=== PATIENT | female | born 1975 | race Two or more races ===

== ENCOUNTER 2024-07-23 14:17 | Inpatient (IN) | payer BC, SELFPAY ==
[2024-07-23 14:24] VITALS: BP 151/102; BP 160/100; PULSE 95; RESP 20; TEMP 36.8; O2SAT 98; BMI 39.9
--- NOTE | 2024-07-23 14:30 | XR_ITS ---
Examination: CT abdomen with intravenous contrast CT pelvis with intravenous contrast 2-D coronal reconstructions 2-D sagittal reconstructions Date and time of exam:July 23, 2024 at 1617 hrs. Indications: Right lower abdominal pain beginning 3 days ago. CTDI: vol (mGy) 18.4 DLP: (mGycm) 1112 Technique: Multiple axial sections of the abdomen and pelvis have been obtained. 64 slice high-resolution scanner used. 3 mm axial sections have been obtained, post intravenous injection 60 cc Isovue-370 2-D sagittal, coronal reconstructions obtained. Low dose protocols were performed. One or more of the following dose reduction techniques were used; automated exposure control, adjustment of the mA and/or KV according to patient size, use of iterative reconstruction technique. Findings: Fatty infiltration throughout the liver No gallstones No renal or ureteral calculi, no hydronephrosis Aorta normal size Mass within formation pericecal without a well-defined appendix Anteverted uterus Contracted urinary bladder with wall thickening Impression: 3 cm mass with inflammation which is pericecal and adjacent to the uterus differential would include ruptured appendicitis as well as right tubo-ovarian abscess, the appearance should be clinically correlated, recommend pelvic sonography follow-up
--- NOTE | 2024-07-23 14:33 | PD.EDRME ---
Rapid Medical Screening Exam RME Arrival date/time: 07/23/24 14:17 48-year-old female with no known medical history presents to the emergency room with a chief complaint of 10 out of 10 right lower quadrant abdominal pain and tenderness x 2 days I have greeted and performed a focused initial assessment of this patient. A comprehensive ED assessment and evaluation of the patient, analysis of all test results, and completion of the medical decision making process will be conducted by additional ED providers. Chief Complaint: Abdominal Pain Time Seen by Provider: 07/23/24 14:21 Vital signs: Vital Signs Temperature 98.2 F 07/23/24 14:24 Pulse Rate 95 07/23/24 14:24 Respiratory Rate 20 07/23/24 14:24 Blood Pressure 151/102 H 07/23/24 14:24 Pulse Oximetry (%) 98 07/23/24 14:24 Oxygen Delivery Method Room Air 07/23/24 14:24 Vital signs reviewed by provider: Yes
[2024-07-23] MEDS: ONDANSETRON ODT 4 MG TABRAP PO (14:48)
[2024-07-23 15:04] LABS: Basophils % (Auto) 0 % (0-2.5); Eosinophils # (Auto) 0.1 Thou/mm3 (0.0-0.5); Eosinophils % (Auto) 1 % (0-10); Hematocrit 39.6 % (36.0-46.0); Hemoglobin 13.1 g/dL (12.0-16.0); Immature Granulocytes % (Auto) 0 % (0-0); Immature Granulocytes Auto 0.02 Thou/mm3 (0.00-0.00); Lymphocytes # (Auto) 2.5 Thou/mm3 (1.0-4.8); Lymphocytes % (Auto) 28 % (10-50); Mean Corpuscular HGB Conc 33.1 g/dl (31.0-37.0); Mean Corpuscular Hemoglobin 29.8 pg (25.0-35.0); Mean Corpuscular Volume 90 fL (80-100); Monocytes # (Auto) 0.7 Thou/mm3 (0.0-0.8); Monocytes % (Auto) 8 % (0-12); Neutrophils # (Auto) 5.7 Thou/mm3 (1.8-7.7); Neutrophils % (Auto) 63 % (37-80); Nucleated Red Blood Cell % 0 /100 WBC (0); Platelet Count 262 Thou/mm3 (140-440); RDW Standard Deviation 43.9 fL (36.4-46.3); Red Blood Count 4.39 Miln/mm3 (4.00-5.20); White Blood Count 9.1 Thou/mm3 (3.6-11.0)
[2024-07-23 15:25] LABS: Collection Type, Urine Clean Catch
[2024-07-23] MEDS: HYDROcodone/APAP 5/325 TABLET 1 TAB PO (15:26)
[2024-07-23 15:33] LABS: Alanine Aminotransferase 18 U/L (10-49); Albumin/Globulin Ratio 1.4 (1.2-2.2); Alkaline Phosphatase 81 U/L (46-116); Anion Gap 9 (7-16); Aspartate Amino Transferase 15 U/L (0-34); BUN/Creatinine Ratio 16 Ratio (12-20); Bilirubin,Total 0.4 mg/dL (0.3-1.2); Blood Urea Nitrogen 11 mg/dL (9-23); Calcium 8.7 mg/dL (8.3-10.6); Calcium (Corrected) 8.7 mg/dL (8.5-10.1); Carbon Dioxide 22.5 mMol/L (20.0-31.0); Chloride 107 mMol/L (98-107); Creatinine (Component) 0.7 mg/dL (0.6-1.3); Estimated Creatinine Clearance 119.3 mL/min (>60); Globulin 2.8 gm/dL (2.3-3.5); Glucose 88 mg/dL (74-106); Lipase 34 U/L (12-53); Osmolality,Calculated 274 (275-295); Potassium 3.8 mMol/L (3.4-5.1); Sodium 138 mMol/L (136-145); Total Protein 6.8 gm/dL (5.7-8.2); eGFR > 60 See Note
[2024-07-23 15:36] LABS: HCG Qualitative,Urine Negative
[2024-07-23 15:45] LABS: Bacteria,Urine Rare; Bilirubin,Urine Negative (Negative); Blood,Urine 2+ (Negative); Clarity,Urine Clear (Clear/Hazy); Color,Urine Lt-Yellow (Lt Yel-Yel); Glucose, Urine Negative (Negative); Ketones,Urine Negative (Negative); Leukocyte Esterase,Urine Negative (Negative); Nitrite,Urine Negative (Negative); Protein,Urine Negative (Neg - Trace); RBC,Urine 3 /hpf (0-3); Specific Gravity,Urine 1.019 (1.001-1.035); Squamous Epithelial Cell,Urine 10 /hpf (0-5); Urobilinogen,Urine Negative mg/dL (0.0-1.0); WBC,Urine 3 /hpf (0-5)
[2024-07-23 15:47] LABS: Sperm,Urine Present
--- NOTE | 2024-07-23 17:33 | XR_ITS ---
Examination: Pelvic ultrasound, transabdominal, complete Technique: Transabdominal ultrasound of the pelvis performed using grayscale imaging Date and time of exam: July 23, 2024 at 1741 hrs. Indications: Pelvic pain and tenderness beginning 3 days ago, CT abdomen pelvis today 3 7 mm mass with inflammation which is pericecal and adjacent to the uterus, differential including appendicitis, right tubo-ovarian abscess Findings: Uterus 13.9 cm endometrial stripe 1.6 cm No uterine mass Right ovary 5.5 cm arterial flow Left ovary 4.2 cm arterial flow Impression: Enlarged right ovary 5.5 x 3.1 x 3.8 cm with arterial flow, differential would include early right ovarian tumor, recommend elective MRI pelvis follow-up pre and postcontrast
--- NOTE | 2024-07-23 22:16 | PD.EDABDPN ---
ED Abdominal Pain RME/HPI General Chief Complaint: Abdominal Pain Stated complaint: SENT BY DR. SINGER FOR ACUTE ABD Time seen by provider: 07/23/24 14:21 Arrival date/time: 07/23/24 14:17 Limitations: no limitations RME / HPI RME / HPI narrative: 07/23/24 14:17 48-year-old female with no known medical history presents to the emergency room with a chief complaint of 10 out of 10 right lower quadrant abdominal pain and tenderness x 2 days I have greeted and performed a focused initial assessment of this patient. A comprehensive ED assessment and evaluation of the patient, analysis of all test results, and completion of the medical decision making process will be conducted by additional ED providers. Dr. Gallagher's Main ED Evaluation: 48yo female with no significant past medical history presents to the ED for a chief complaint of RLQ pain since yesterday. Patient states her RLQ pain got significantly worse today. She reports associated chills and nausea. She denies any fever, vomiting, diarrhea, UTI symptoms or any other associated symptoms. No known allergies. Related Data Allergies Allergy/AdvReac Type Severity Reaction Status Date / Time No Known Allergies Allergy Verified 07/23/24 14:19 Review of Systems Review of Systems Systems Reviewed: All systems reviewed, normal except as documented Past Medical History Past Medical History CARDIAC: Negative Cardiac Disorders RESPIRATORY: Negative Asthma GENITOURINARY: Negative Renal Disease ENDOCRINE: Negative Diabetes Mellitus Type 2 HEMATOLOGIC: Negative Sickle Cell Disease Social History SMOKING STATUS: Never smoker ED Exam Narrative Physical exam: PELVIC: Welding Machine Operator Resistance present. Dark yellow discharge seen in the vaginal vault. There is right-sided pelvic fullness with tenderness. General Limitations: Present no limitations General appearance: Present alert and other (appears uncomfortable) Head Head exam: Present atraumatic Eye Eye exam: Present normal appearance, PERRL and EOMI ENT ENT exam: Present normal exam, normal oropharynx and mucous membranes moist Neck Neck exam: Present normal inspection, full ROM and trachea midline Chest Chest inspection: Present normal inspection and symmetric chest wall rise Respiratory Respiratory exam: Present normal lung sounds bilaterally Cardiovascular Cardiovascular exam: Present regular rate, normal rhythm and normal heart sounds Abdominal Exam Abdominal exam: Present soft, rebound (mild, diffuse) and other (RLQ>LLQ abdominal tenderness) Extremities Exam Extremities exam: Present normal inspection and full ROM Back Exam Back exam: Present normal inspection and full ROM Neurological Exam Neurological exam: Present alert, oriented X3 and CN II-XII intact Psychiatric Psychiatric exam: Present normal affect and normal mood Skin Skin exam: Present warm, dry, intact and normal color Course Quality Measures none Orders Category Date Time Status COVID-19 Screening Questionnaire NOW Care 07/24/24 02:[address] Screening NOW Care 07/23/24 14:31 Active Decision to Admit X1 Care 07/24/24 02:04 Completed Consult to General Surgery Routine Cons 07/24/24 04:23 Ordered Consult to Obstetrics Routine Cons 07/24/24 04:[address] abdomen pelvis w con Stat Exams 07/23/24 14:30 Completed US pelvic complete Stat Exams 07/23/24 17:33 Completed CBC Stat Lab 07/23/24 14:43 Completed CMP [Comprehensive Metabolic Panel] Stat Lab 07/23/24 14:43 Completed HCG Qualitative,Urine Stat Lab 07/23/24 15:00 Completed Lipase Stat Lab 07/23/24 14:43 Completed UA [Urinalysis] Stat Lab 07/23/24 15:00 Completed Urine Culture Stat Lab 07/23/24 15:00 Received Wet Prep Stat Lab 07/24/24 01:15 Received HYDROcodone*/APAP 5/325 [[place] 5/325] Med 07/23/24 14:30 Discontinued 1 tab PO X1 ONE Ketorolac Inj [Toradol Inj] Med 07/23/24 22:20 Discontinued 30 mg IVP X1 ONE Morphine Inj Med 07/23/24 23:57 Discontinued 4 mg IVP X1 ONE Morphine Inj Med 07/24/24 00:30 Discontinued 4 mg IVP X1 ONE Morphine Inj Med 07/24/24 01:04 Discontinued 4 mg IVP X1 ONE Ondansetron Inj [Zofran Inj] Med 07/23/24 23:57 Discontinued 4 mg IV X1 ONE Ondansetron Inj [Zofran Inj] Med 07/23/24 23:59 Active 4 mg IV X1 PRN Ondansetron Odt [Zofran Odt] Med 07/23/24 14:30 Discontinued 4 mg PO X1 ONE Piper/Tazo 3.375 gm Premix [Zosyn] Med 07/24/24 04:15 Discontinued 3.375 gm in 50 ml IV X1 Piper/Tazo 3.375 gm Premix [Zosyn] 50 ml Med 07/24/24 02:36 Pending IV Q6HR Sodium Chloride 0.9% 1000 ml [Ns] 1,000 ml Med 07/24/24 02:37 Active IV 75 mls/hr Sodium Chloride 0.9% 1000 ml [Ns] 1,000 ml Med 07/23/24 22:21 Discontinued IV 999 mls/hr Vital Signs Vital signs: Vital Signs Temperature 98.2 F 07/23/24 14:24 Pulse Rate 95 07/23/24 14:24 Respiratory Rate 20 07/23/24 14:24 Blood Pressure 151/102 H 07/23/24 14:24 Pulse Oximetry (%) 98 07/23/24 14:24 Oxygen Delivery Method Room Air 07/23/24 14:24 Abdominal Pain MDM MDM Narrative MDM Narrative:: 0030: Discussed case with [Dr. Milian] from [general surgery] regarding [consultation]. Discussed patients ED course, exam findings, labs, and radiology results. Does not feel the patient hs appendicitis at this time and thinks the patient may have a tubo ovarian abscess. States getting a MRI will be usefule, but to admit the patient for pain control and IV abx. 0123: Discussed case with [Dr. Reed, attending Dr. Lott] from Hospitalist service regarding admission. Discussed patients ED course, exam findings, labs, and radiology results. The Hospitalist will evaluate the patient for admission. 0207: The Hospitalist requests [employer] consultation, but will admit the patient. 0457: Discussed case with [Dr. Elder] from [[employer]] regarding [consultation]. Discussed patients ED course, exam findings, labs, and radiology results. States she will come evaluate the patient. Patient data External records reviewed:: [facility] previous records (Per chart review, patient has no previous ED visits or admissions to this facility.) Clinical information provided by:: patient Social determinants that could affect healthcare access:: none Patient has the following chronic illnesses:: none How is presenting disease/condition affected by chronic disease/condition?: no chronic disease Evaluation data The following diagnostics were reviewed and interpreted by me:: lab results and radiology exam(s) Lab and/or radiology exams considered but not ordered:: none Interpretation Summary: CBC is normal, CMP is normal, Lipase is normal, UA is contaminated, HCG is negative, according to my interpretation. --------- [facility] Report Signed Patient: АНДРЕЙ NGUYEN [facility]. Record#: [id number] Birthdate: 1975 Age/Sex: 48 / F Location: [facility] Attending Dr: Ordering Physician: Osvaldo Worthington Date of Service: 07/23/24 Procedure(s): US pelvic complete Accession Number(s): [id number] cc: Theron Singer MD; Osvalod Worthington; Riley Mansfield MD~ Examination: Pelvic ultrasound, transabdominal, complete Technique: Transabdominal ultrasound of the pelvis performed using grayscale imaging Date and time of exam: July 23, 2024 at 1741 hrs. Indications: Pelvic pain and tenderness beginning 3 days ago, CT abdomen pelvis today 3 7 mm mass with inflammation which is pericecal and adjacent to the uterus, differential including appendicitis, right tubo-ovarian abscess Findings: Uterus 13.9 cm endometrial stripe 1.6 cm No uterine mass Right ovary 5.5 cm arterial flow Left ovary 4.2 cm arterial flow Impression: Enlarged right ovary 5.5 x 3.1 x 3.8 cm with arterial flow, differential would include early right ovarian tumor, recommend elective MRI pelvis follow-up pre and postcontrast Dictated By: Riley Mansfield MD Signed By: <Electronically signed by Riley Mansfield MD in OV> 07/23/24 1823 [facility] Signed Patient: АНДРЕЙ NGUYEN [facility]. Record#: [id number] Birthdate: 1975 Age/Sex: 48 / F Location: [facility] Attending Dr: Ordering Physician: Osvaldo Worthington Date of Service: 07/23/24 Procedure(s): CT abdomen pelvis w con Accession Number(s): [id number] cc: Theron Singer MD; Osvaldo Worthington; Riley Mansfield MD~ Examination: CT abdomen with intravenous contrast CT pelvis with intravenous contrast 2-D coronal reconstructions 2-D sagittal reconstructions Date and time of exam:July 23, 2024 at 1617 hrs. Indications: Right lower abdominal pain beginning 3 days ago. CTDI: vol (mGy) 18.4 DLP: (mGycm) 1112 Technique: Multiple axial sections of the abdomen and pelvis have been obtained. 64 slice high-resolution scanner used. 3 mm axial sections have been obtained, post intravenous injection 60 cc Isovue-370 2-D sagittal, coronal reconstructions obtained. Low dose protocols were performed. One or more of the following dose reduction techniques were used; automated exposure control, adjustment of the mA and/or KV according to patient size, use of iterative reconstruction technique. Findings: Fatty infiltration throughout the liver No gallstones No renal or ureteral calculi, no hydronephrosis Aorta normal size Mass within formation pericecal without a well-defined appendix Anteverted uterus Contracted urinary bladder with wall thickening Impression: 3 cm mass with inflammation which is pericecal and adjacent to the uterus differential would include ruptured appendicitis as well as right tubo-ovarian abscess, the appearance should be clinically correlated, recommend pelvic sonography follow-up Dictated By: Riley Mansfield MD Signed By: <Electronically signed by Riley Mansfiled MD in OV> 07/23/24 1708 Medications / Prescriptions Medications or Prescriptions considered but not ordered:: none Medication administrations:: Medication Administration History Acetaminophen (Acetaminophen 325 Mg Tablet) 650 mg PO Q6H PRN PRN Reason: Fever >100 or pain 1-3 Stop: 08/23/24 04:24 Hydrocodone Bitart/Acetaminophen (Hydrocodone/Apap 5/325 Tablet) 1 tab PO Q4HR PRN PRN Reason: PAIN SCALE 4-6 (Moderate Stop: 07/29/24 04:24 Enoxaparin Sodium (Enoxaparin Sod Inj 40 Mg/0.4 Ml Syringe) 40 mg SC QDAY [facility] Stop: 08/07/24 08:59 Piperacillin/Tazobactam/Dextrose (Zosyn) 50 mls @ 100 mls/hr IV Q6HR ALDA Stop: 07/31/24 02:35 Sodium Chloride (Ns) 1,000 mls @ 75 mls/hr IV .[id number] [facility] Stop: 08/23/24 02:36 Last Admin: 07/24/24 03:33 Dose: 75 mls/hr Documented By: CVL Morphine Sulfate (Morphine Sulf Inj 10 Mg/Ml Vial) 1 mg IVP Q6H PRN PRN Reason: PAIN SCALE 7-10 (Severe Stop: 07/29/24 04:24 Ondansetron HCl (Ondansetron Inj 2 Mg/Ml Inj 2 Ml) 4 mg IV X1 PRN; Protocol PRN Reason: NAUSEA Stop: 08/22/24 23:58 Ondansetron HCl (Ondansetron Inj 2 Mg/Ml Inj 2 Ml) 4 mg IV Q6H PRN; Protocol PRN Reason: NAUSEA OR VOMITING Stop: 08/23/24 04:24 Pantoprazole Sodium (Pantoprazole Inj 40 Mg Vial) 40 mg IVP QDAY ALDA Stop: 08/23/24 08:59 Trazodone HCl (Trazodone Hcl 50 Mg Tablet) 150 mg PO HS ALDA Stop: 08/23/24 20:59 Discontinued Medications Hydrocodone Bitart/Acetaminophen (Hydrocodone/Apap 5/325 Tablet) 1 tab PO X1 ONE Stop: 07/23/24 14:31 Last Admin: 07/23/24 15:26 Dose: 1 tab Documented By: Sodium Chloride (Ns) 1,000 mls @ 999 mls/hr IV .Q1H1M ONE Stop: 07/23/24 23:21 Last Infusion: 07/24/24 00:26 Dose: Infused Documented By: Admin: 07/23/24 22:50 Dose: 999 mls/hr Documented By: CVL Piperacillin/Tazobactam/Dextrose (Zosyn) 3.375 gm in 50 mls @ 100 mls/hr IV X1 ONE Stop: 07/24/24 04:44 Last Admin: 07/24/24 04:50 Dose: 100 mls/hr Documented By: CVL Ketorolac Tromethamine (Ketorolac Inj 30 Mg/Ml Vial) 30 mg IVP X1 ONE Stop: 07/23/24 22:21 Last Admin: 07/23/24 23:32 Dose: 30 mg Documented By: CVL Morphine Sulfate (Morphine Sulf Inj 10 Mg/Ml Vial) 4 mg IVP X1 ONE Stop: 07/23/24 23:58 Last Admin: 07/24/24 00:20 Dose: 4 mg Documented By: PILI Morphine Sulfate (Morphine Sulf Inj 10 Mg/Ml Vial) 4 mg IVP X1 ONE Stop: 07/24/24 00:31 Last Admin: 07/24/24 00:48 Dose: Not Given Documented By: PILI Non-Admin Reason: Discontinued Morphine Sulfate (Morphine Sulf Inj 10 Mg/Ml Vial) 4 mg IVP X1 ONE Stop: 07/24/24 01:05 Last Admin: 07/24/24 01:18 Dose: 4 mg Documented By: PILI Ondansetron HCl (Ondansetron Odt 4 Mg Tabrap) 4 mg PO X1 ONE; Protocol Stop: 07/23/24 14:31 Last Admin: 07/23/24 14:48 Dose: 4 mg Documented By: Ondansetron HCl (Ondansetron Inj 2 Mg/Ml Inj 2 Ml) 4 mg IV X1 ONE; Protocol Stop: 07/23/24 23:58 Last Admin: 07/24/24 00:19 Dose: 4 mg Documented By: PILI see above Consultations Consultation(s) initiated? (list below): Yes Consultation #1 (Physician, Specialty, Details): See MDM narrative. Diagnosis Differential diagnosis abdominal pain: acute appendicitis, diverticulitis and other (abdominal abscess, ovarian mass, UTI, pyelonephritis, sepsis) Most likely diagnosis given after review of the tests above:: see clinical impression below Admission Indicated Admission indicated?: indicated Admission Request Was there a request for admission?: Yes Admission Attestation Admission request attestation: Discussed case with [] from Hospitalist service regarding admission. Discussed patients ED course, exam findings, labs, and radiology results. The Hospitalist [agrees,declines] to accept the patient for admission. Disposition Plan Disposition Plan: Admit Discharge Plan Plan Patient Disposition: Admit Acute Care w/in Hospital Problem List Clinical Impression: Abdominal pain, Vaginal discharge, Cyst of right ovary, Right lower quadrant abscess
[2024-07-23] MEDS: SODIUM CHLORIDE 0.9% 1000 ML 1,000 ML 999 ML IV (22:50)
[2024-07-23] MEDS: KETOROLAC INJ 30 MG/ML VIAL IVP (23:32)
[2024-07-24] VITALS (7 sets, daily range): BP systolic 117–152; BP diastolic 77–93; PULSE 84–92; RESP 16–19; TEMP 36.2–37; O2SAT 94–97; BMI 44.1
[2024-07-24] MEDS: ONDANSETRON INJ 2 MG/ML INJ 2 ML 4 MG IV ×2 (00:19→19:10)
[2024-07-24] MEDS: MORPHINE SULF INJ 10 MG/ML VIAL 4 MG IVP ×3 (00:20→14:00)
[2024-07-24] MEDS: SODIUM CHLORIDE 0.9% 1000 ML 1,000 ML 75 ML IV (03:33)
--- NOTE | 2024-07-24 04:03 | ESHP_ITS ---
<Statement entered by Kia Lott MD - 07/25/24 04:35> I reviewed above note and agree with findings and plans. I have also personally examined the patient with medicine team and went over assessment and plan with medical team including administration intern and resident physician. Documentation for date of: 07/24/24 HPI History of Present Illness History of present illness: Esperanza is a 48 y/o female w/PMHx of depression who comes in for an evaluation of periumbilical pain radiating to right lower quadrant, onset 2 days ago, with associated vomiting. Patient reports the symptoms have never happened before. She reports that her pain started in her periumbilical area and had radiated to her right lower side and has gotten worsening in pain, rated 10 out of 10 currently. She denies any recent travel or changes to diet. She says that she is currently not on her period and when she is she has them for about 4 to 5 days, and they are not heavy nor painful. She denies a history of irritable bowel disease, UTIs or STIs. She denies any recent trauma to the area. She has a history of gallstones. She is unsure why she is having this pain. She does endorse a history of having 3 C-sections and the first 1 was because there was an issue with the umbilical cord. No other complaints at this time. Does not see a manager patient. ED course: Patient arrived with a heart rate 95, respiratory of 20, blood pressure 151/102, temperature of 98.2, saturating 98% on room air. She was worked up and was found to have sodium 138, potassium 3.8, BUN/creatinine 11 and 0.7 respectively, glucose 88, white count 9.1, hemoglobin 13.1, lipase 34. Urinalysis showed +2 blood. Imaging was done and CT abdomen pelvis showed 3 cm mass pericecal and adjacent to the uterus. Pelvis ultrasound was ordered and showed enlarged right ovary 5. 5 x 3.1 x 3.8 cm with arterial flow. Patient was given [place] 5, Toradol 30, morphine 12 mg by 3 doses. General surgery was curb sided and recommended IV antibiotics and no surgical intervention at this time. Medicine was consulted and patient was made to floors. Past medical history: As above Surgical history: 3 C-sections Allergies: No known allergies Meds: Trazodone Family history: Her dad had about 38 siblings, numerous of them of cancer. Her grandmother of ovarian cancer. Her aunt she has had breast cancer. Social history: Born and raised in [place]. Has multiple kids. with her who lives with her . Is never been a heavy drinker, no smoking or oral or IV drug use history. Review of Systems Review of Systems Narrative Review of Systems: Constitutional: No fever, chills, fatigue, weakness, weight loss HEENT: No eye pain, vision loss, ear pain, hearing loss, dysphagia, Cardiovascular: No chest pain, palpitations, edema, pain with walking Respiratory: No cough, shortness of breath, wheezing GI: No NVD, abdominal pain, constipation, blood in stool, loss of appetite, heartburn Extremities: No presence of pitting edema MSK: No back pain, joint pain, joint swelling Neuro: No dizziness, numbness, weakness, headaches, seizures, tremors Psych: No anxiety, depression Exam Vital Signs Temp Pulse Resp BP Pulse Ox O2 Del Method 98.6 F 91 17 137/90 H 97 Room Air 07/24/24 02:25 07/24/24 02:25 07/24/24 02:25 07/24/24 02:25 07/24/24 02:25 07/24/24 02:25 Narrative Exam General: AAOx3, obese female, in some distress, wears glasses HEENT: Moist mucous membranes, conjunctiva clear, EOMI, PERRLA, Cardiovascular: S1, S2, radial pulses +2 bilat, RRR Pulmonary: CTAB bilat no cough, no wheezing GI: Significant rebound tenderness along right lower quadrant, pain to light and deep palpation in periumbilical area in addition to right lower quadrant, difficulty hearing bowel sounds : Pelvic exam done by emergency medicine doctor who reported odorous smell and dark yellow discharge Extremities: No presence of trace or pitting edema in lower extremities bilaterally, dorsalis pedis pulses +2 bilaterally Neuro: AAOx3, no focal motor or sensory deficits in the UE or LE bilat Psych: Cooperative Results: Labs 07/24/24 05:00 07/23/24 14:43 Labs: Short CBC 07/23/24 Range/Units 14:43 WBC 9.1 (3.6-11.0) Thou/mm3 Hgb 13.1 (12.0-16.0) g/dL Hct 39.6 (36.0-46.0) % Plt Count 262 (140-440) Thou/mm3 BMP 07/23/24 14:43 Sodium 138 Potassium 3.8 Chloride 107 Carbon Dioxide 22.5 BUN 11 Creatinine 0.7 Glucose 88 Calcium 8.7 Liver Function 07/23/24 Range/Units 14:43 Total Bilirubin 0.4 (0.3-1.2) mg/dL AST 15 (0-34) U/L ALT 18 (10-49) U/L Alkaline Phosphatase 81 (46-116) U/L Albumin 4.0 (3.5-5.0) gm/dL Urine 07/23/24 Range/Units 15:00 Urine Color Lt-Yellow (Lt Yel-Yel) Urine Clarity Clear (Clear/Hazy) Urine pH 6.0 (5.0-7.0) Ur Specific [place] 1.019 (1.001-1.035) Urine Protein Negative (Neg - Trace) Urine Glucose (UA) Negative (Negative) Quality Measures Quality Measures none Medications Home Medications and Allergies Home Medications ?Medication ?Instructions ?Recorded ?Confirmed ?Type No Known Home Medications 07/24/2407/12 History Allergies Allergy/AdvReac Type Severity Reaction Status Date / Time No Known Allergies Allergy Verified 07/23/24 14:19 Visit Medications Piperacillin/Tazobactam/Dextrose (Zosyn) 50 mls @ 100 mls/hr IV Q6HR ALDA Stop: 07/31/24 02:35 Sodium Chloride (Ns) 1,000 mls @ 75 mls/hr IV .[id number] ALDA Stop: 08/23/24 02:36 Last Admin: 07/24/24 03:33 Dose: 75 mls/hr Ondansetron HCl (Ondansetron Inj 2 Mg/Ml Inj 2 Ml) 4 mg IV X1 PRN; Protocol PRN Reason: NAUSEA Stop: 08/22/24 23:58 Discontinued Medications Hydrocodone Bitart/Acetaminophen (Hydrocodone/Apap 5/325 Tablet) 1 tab PO X1 ONE Stop: 07/23/24 14:31 Last Admin: 07/23/24 15:26 Dose: 1 tab Sodium Chloride (Ns) 1,000 mls @ 999 mls/hr IV .Q1H1M ONE Stop: 07/23/24 23:21 Last Infusion: 07/24/24 00:26 Dose: Infused Ketorolac Tromethamine (Ketorolac Inj 30 Mg/Ml Vial) 30 mg IVP X1 ONE Stop: 07/23/24 22:21 Last Admin: 07/23/24 23:32 Dose: 30 mg Morphine Sulfate (Morphine Sulf Inj 10 Mg/Ml Vial) 4 mg IVP X1 ONE Stop: 07/23/24 23:58 Last Admin: 07/24/24 00:20 Dose: 4 mg Morphine Sulfate (Morphine Sulf Inj 10 Mg/Ml Vial) 4 mg IVP X1 ONE Stop: 07/24/24 00:31 Last Admin: 07/24/24 00:48 Dose: Not Given Morphine Sulfate (Morphine Sulf Inj 10 Mg/Ml Vial) 4 mg IVP X1 ONE Stop: 07/24/24 01:05 Last Admin: 07/24/24 01:18 Dose: 4 mg Ondansetron HCl (Ondansetron Odt 4 Mg Tabrap) 4 mg PO X1 ONE; Protocol Stop: 07/23/24 14:31 Last Admin: 07/23/24 14:48 Dose: 4 mg Ondansetron HCl (Ondansetron Inj 2 Mg/Ml Inj 2 Ml) 4 mg IV X1 ONE; Protocol Stop: 07/23/24 23:58 Last Admin: 07/24/24 00:19 Dose: 4 mg Assessment & Plan Plan Assessment Esperanza is a 48 y/o female w/PMHx of depression who is admitted for acute abdomen. #Abdominal Mass vs #Ovarian Abscess #Abdominal pain DDx: Appendicitis, tubo-ovarian abscess, ovarian tumor, PID Ultrasound showed enlarged right ovary 5.5 x 3.1 x 3.[address] did not show appendicitis exam showed dark yellow discharge that was odorous, could be infectious related Patient experiencing extreme rebound tenderness, could be appendicitis as pain is described in periumbilical area and then radiated to the right lower quadrant, however is only been experiencing for 2 days Plan: ? Zosyn 3.375 mg Q6H IV ? General Surgery consult ? OBGYN Consult ? Pain control with Morphine and [place] ? MRI pelvis w/wout contrast ? Follow up pelvic culture ? Follow up blood cultures ? Consider STI screening #History of Depression Plan: ? Resumed home trazodone 150 mg #[facility]: [facility] GI prophylaxis: Protonix Diet: Regular CODE STATUS: Full Patient seen and care discussed with my attending physician, Dr. Kaylie Ricci, PGY-1
[2024-07-24] MEDS: PIPER/TAZO 3.375 GM PREMIX 3.375 GM/50 ML BAG IV ×3 (04:50→21:24)
[2024-07-24 05:50] LABS: Basophils % (Auto) 1 % (0-2.5); Eosinophils # (Auto) 0.1 Thou/mm3 (0.0-0.5); Eosinophils % (Auto) 1 % (0-10); Hematocrit 35.5 % (36.0-46.0); Hemoglobin 11.6 g/dL (12.0-16.0); Immature Granulocytes % (Auto) 0 % (0-0); Immature Granulocytes Auto 0.02 Thou/mm3 (0.00-0.00); Lymphocytes # (Auto) 1.6 Thou/mm3 (1.0-4.8); Lymphocytes % (Auto) 22 % (10-50); Mean Corpuscular HGB Conc 32.7 g/dl (31.0-37.0); Mean Corpuscular Hemoglobin 29.4 pg (25.0-35.0); Mean Corpuscular Volume 90 fL (80-100); Monocytes # (Auto) 0.8 Thou/mm3 (0.0-0.8); Monocytes % (Auto) 11 % (0-12); Neutrophils % (Auto) 66 % (37-80); Nucleated Red Blood Cell % 0 /100 WBC (0); Platelet Count 222 Thou/mm3 (140-440); Red Blood Count 3.94 Miln/mm3 (4.00-5.20); White Blood Count 7.5 Thou/mm3 (3.6-11.0)
--- NOTE | 2024-07-24 06:01 | PC.NURSE ---
REPORT GIVEN TO ALMA FREDERICK AT [facility].
--- NOTE | 2024-07-24 06:03 | XR_ITS ---
Examination: MRI pelvis with intravenous contrast. MRI pelvis without intravenous contrast. Date and time of exam: July 24, 2024 1753 hrs. Indications: Pelvic pain and tenderness beginning 4 days ago, pelvic sonogram July 23, 2024 prominent right ovary 5.5 cm Technique: Multiple axial, sagittal and coronal sections of the pelvis obtained. Transverse images, TR 6020, TE 107. T1 weighted transverse images, TR 582, TE 9.5. T2-weighted sagittal images, TR 4000, TE 105. T2-weighted sagittal images, TR 4000, TE 5. Coronal images, TR 4210, TE 107. Axial and coronal images are obtained post 20 cc intravenous injection, gadolinium. Findings: Anteverted uterus, 14 x 5 x 4.8 cm Endometrial stripe 15 mm Uterine body mass 26 mm Prominent right ovary 5.8 x 2.6 cm with follicular cysts, multiple, the largest 18 mm Left ovary 3.8 x 2.8 cm Impression: Uterine body mass 26 mm, likely fibroid degeneration Prominent right ovary, which appears to be secondary to multiple follicular cysts Recommend 6 month follow-up transabdominal pelvic sonography
[2024-07-24 06:09] LABS: Partial Thromboplastin Time 24.7 Seconds (22.0-36.0); Prothrombin Time 10.5 Seconds (9.0-12.2)
[2024-07-24 06:34] LABS: Alanine Aminotransferase 48 U/L (10-49); Albumin, Serum 3.6 gm/dL (3.5-5.0); Albumin/Globulin Ratio 1.4 (1.2-2.2); Alkaline Phosphatase 126 U/L (46-116); Anion Gap 9 (7-16); Aspartate Amino Transferase 98 U/L (0-34); BUN/Creatinine Ratio 17 Ratio (12-20); Blood Urea Nitrogen 10 mg/dL (9-23); Calcium 8.3 mg/dL (8.3-10.6); Calcium (Corrected) 8.6 mg/dL (8.5-10.1); Carbon Dioxide 24.1 mMol/L (20.0-31.0); Cardiac Risk Estimate 4.3 RATIO (3.7-5.6); Chloride 108 mMol/L (98-107); Cholesterol 173 mg/dL (132-200); Creatinine (Component) 0.6 mg/dL (0.6-1.3); Estimated Creatinine Clearance 147.3 mL/min (>60); Globulin 2.5 gm/dL (2.3-3.5); Glucose 90 mg/dL (74-106); HDL Cholesterol 40 mg/dL (40-60); LDL Cholesterol,Calculated 98 mg/dL (0-130); Osmolality,Calculated 280 (275-295); Phosphorous 2.3 mg/dL (2.4-5.1); Potassium 3.6 mMol/L (3.4-5.1); Sodium 141 mMol/L (136-145); Thyroid Stimulating Hormone 2.75 uIU/mL (0.55-4.78); Total Protein 6.1 gm/dL (5.7-8.2); Triglycerides 175 mg/dL (30-150); eGFR > 60 See Note
[2024-07-24 06:44] LABS: Glucose Estimated Average 100 mg/dL (80-131); Hemoglobin A1C 5.1 % Hgb (4.8-6.0)
--- NOTE | 2024-07-24 08:55 | ESCONSULT_ITS ---
HOUSING MANAGEMENT OFFICER HPI Data of Consult Requesting Physician: Aziza Clinton MD Primary Care Provider: Theron Luna MD Consult Narrative History of present illness: Esperanza is a 48yo who presented to the ER from her PCP for periumbilical pain that migrated to her right lower quadrant, onset 2 days ago, with associated nausea. Hurts to walk or lift her legs, has to walk hunched over. She really didn't want to come to the hospital, but pain was unbearable. Even with morphine in the ER, pain continued to be severe. Pain currently in the RLQ and waxes/wanes. She was admitted by IM with Gen Surg and Scouring Train Operator consults. She denies any abnormal vaginal discharge. Zero concerns for STIs. HOUSING MANAGEMENT OFFICER history: No hx of STIs. No hx of abnormal pap smears, last pap 1 year ago. Last mammogram 2 years ago. Regular monthly periods normal in timing and flow. Past medical history: obesity (BMI 44), depression, gallstones Surgical history: 3 sections with BTL during last Allergies: No known allergies Meds: Trazodone Family history: Her dad had about 38 siblings, numerous of them of cancer. Her grandmother of ovarian cancer. Her aunt had breast cancer. Social history: for decades and mutually monogamous. No ETOH/tobacco/illicit drug use (She used to be on the [employer] team in [place]). cc:: cc: Aziza Clinton MD Review of Systems Review of Systems Narrative Review of Systems: Review of Systems Systems Reviewed: All systems reviewed, normal except as documented Constitutional Constitutional: Denies body ache(s), Endorses chills, Denies fever(s) and Denies headache(s) ENT Ears, Nose, Mouth, and Throat: Denies headache(s) and Denies vertigo Cardiovascular Cardiovascular: Denies chest pain, Denies palpitations, Denies dyspnea and Denies syncope Respiratory Respiratory: Denies cough, Denies dyspnea Gastrointestinal Gastrointestinal: Endorses nausea and abdominal pain and Denies vomiting Neurologic Neurologic: Denies convulsions, Denies headache(s), Denies other visual disturbances, Denies syncope and Denies vertigo Meds Home Medications and Allergies Home Medications ?Medication ?Instructions ?Recorded ?Confirmed ?Type No Known Home Medications 07/24/2407/12 History Allergies Allergy/AdvReac Type Severity Reaction Status Date / Time No Known Allergies Allergy Verified 07/23/24 14:19 Exam - HOUSING MANAGEMENT OFFICER Vital Signs Temp Pulse Resp BP Pulse Ox O2 Del Method 97.1 F 84 16 127/92 H 97 Room Air 07/24/24 08:00 07/24/24 08:00 07/24/24 08:00 07/24/24 08:00 07/24/24 08:00 07/24/24 08:00 Narrative Exam General: well developed, well nourished, uncomfortable as pain waxes/wanes, conversant Cardiac: normal heart rate Lungs: breathing without distress Abdomen: soft, obese, RLQ tenderness with rebound and guarding Extremities: no BLE edema Bimanual exam (RN as event technician): NEFG, RLQ guarding/rebound, no distinct ovarian mass, difficult to fully palpate uterus 2/2 habitus but NO cervical motion tenderness HOUSING MANAGEMENT OFFICER - Results Labs 07/24/24 05:00 07/24/24 05:00 Labs: Short CBC 07/23/24 07/24/24 Range/Units 14:43 05:00 WBC 9.1 7.5 (3.6-11.0) Thou/mm3 Hgb 13.1 11.6 L (12.0-16.0) g/dL Hct 39.6 35.5 L (36.0-46.0) % Plt Count 262 222 D (140-440) Thou/mm3 BMP 07/23/24 07/24/24 14:43 05:00 Sodium 138 141 Potassium 3.8 3.6 Chloride 107 108 H Carbon Dioxide 22.5 24.1 BUN 11 10 Creatinine 0.7 0.6 Glucose 88 90 Calcium 8.7 8.3 Liver Function 07/23/24 07/24/24 Range/Units 14:43 05:00 Total Bilirubin 0.4 1.0 D (0.3-1.2) mg/dL AST 15 98 H (0-34) U/L ALT 18 48 (10-49) U/L Alkaline Phosphatase 81 126 H D (46-116) U/L Albumin 4.0 3.6 (3.5-5.0) gm/dL Urine 07/23/24 Range/Units 15:00 Urine Color Lt-Yellow (Lt Yel-Yel) Urine Clarity Clear (Clear/Hazy) Urine pH 6.0 (5.0-7.0) Ur Specific [place] 1.019 (1.001-1.035) Urine Protein Negative (Neg - Trace) Urine Glucose (UA) Negative (Negative) Impressions Impression: CT abdomen with intravenous contrast CT pelvis with intravenous contrast 2-D coronal reconstructions 2-D sagittal reconstructions Date and time of exam:July 23, 2024 at 1617 hrs. Indications: Right lower abdominal pain beginning 3 days ago. CTDI: vol (mGy) 18.4 DLP: (mGycm) 1112 Technique: Multiple axial sections of the abdomen and pelvis have been obtained. 64 slice high-resolution scanner used. 3 mm axial sections have been obtained, post intravenous injection 60 cc [id number] 2-D sagittal, coronal reconstructions obtained. Low dose protocols were performed. One or more of the following dose reduction techniques were used; automated exposure control, adjustment of the mA and/or KV according to patient size, use of iterative reconstruction technique. Findings: Fatty infiltration throughout the liver No gallstones No renal or ureteral calculi, no hydronephrosis Aorta normal size Mass within formation pericecal without a well-defined appendix Anteverted uterus Contracted urinary bladder with wall thickening Impression: 3 cm mass with inflammation which is pericecal and adjacent to the uterus differential would include ruptured appendicitis as well as right tubo-ovarian abscess, the appearance should be clinically correlated, recommend pelvic sonography follow-up Examination: Pelvic ultrasound, transabdominal, complete Technique: Transabdominal ultrasound of the pelvis performed using grayscale imaging Date and time of exam: July 23, 2024 at 1741 hrs. Indications: Pelvic pain and tenderness beginning 3 days ago, CT abdomen pelvis today 3 7 mm mass with inflammation which is pericecal and adjacent to the uterus, differential including appendicitis, right tubo-ovarian abscess Findings: Uterus 13.9 cm endometrial stripe 1.6 cm No uterine mass Right ovary 5.5 cm arterial flow Left ovary 4.2 cm arterial flow Impression: Enlarged right ovary 5.5 x 3.1 x 3.8 cm with arterial flow, differential would include early right ovarian tumor, recommend elective MRI pelvis follow-up pre and postcontrast Assessment and Plan Assessment and plan (1) Right lower quadrant abscess: Status: Acute Assessment and plan: Esperanza is a 48yo with hx of 3 sections and BTL presenting to ER with alicia-umbilical pain that migrated to RLQ. Mild range bp's, mild tachycardia, afebrile. WBC count 9.1 yesterday, 7.5 today. SSE performed by ER physician, discharge noted and wet prep obtained. Bimanual exam by me showed RLQ guarding/rebound, NO cervical motion tenderness. On CT scan, there is a 3cm mass with inflammation that is pericecal and adjacent to uterus. On ultrasound right ovary slightly non-specifically enlarged. Clinical presentation and imaging more suggestive of appendicitis than logging worker etiology. Patient is /monogamous, no hx of STIs, and has hx of BTL, so no pathway for pathogens to migrate for PID. Thus, suspicion low. Scouring Train Operator Recommendations: -Wet prep pending -NG/CT/trich testing ordered and urine was collected to send -MRI pelvis as previously ordered -Agree with abx, but ultimately defer to General Surgery regarding abx vs surgical management given strong suspicion for appendicitis (2) Vaginal discharge: Status: Acute (3) Abdominal pain: Status: Acute (3) Abdominal pain Qualifiers: Abdominal location: right lower quadrant Qualified Code(s): R10.31 - Right lower quadrant pain
[2024-07-24] MEDS: HYDROcodone/APAP 5/325 TABLET 1 TAB PO (10:38)
[2024-07-24] MEDS: NAPH,KPH MBDB 1 PACKET (1.5 GM) PO (10:39)
[2024-07-24] MEDS: PANTOPRAZOLE INJ 40 MG VIAL IVP (10:40)
[2024-07-24] MEDS: ENOXAPARIN SOD INJ 40 MG/0.4 ML SYRINGE SC (10:40)
--- NOTE | 2024-07-24 14:40 | ESPR_ITS ---
<Statement entered by Mikaela Sosa MD - 07/25/24 07:47> I discussed with and supervised the internal medicine hospitalist physician who took care of this patient. I personally saw and examined the patient and discussed the assessment and plan with the entire medicine team, including my attending Dr. Clinton , I agree with most of the assessment and plan as documented below Mikaela Sosa M.D. PGY-2 Documentation for date of: 07/24/24 Subjective Subjective Interval history: Patient seen today at the bedside fine awake, alert, oriented x 3. No overnight events reported. Vital signs stable at this time. Labs at this time stable. TRANSPORTATION JOB TITLES evaluated the patient believes etiology of patient's presenting symptoms likely more related to appendicitis. Spoke to general surgery they believed patient has tubo-ovarian abscess and recommended to continue with IV antibiotic therapy at this time. Patient is also pending MRI of the pelvis. Will continue to monitor at this time. Exam Vital Signs Temp Pulse Resp BP Pulse Ox O2 Del Method 97.8 F 87 17 144/93 H 95 Room Air 07/24/24 12:00 07/24/24 12:00 07/24/24 12:00 07/24/24 12:00 07/24/24 12:00 07/24/24 12:00 Narrative Exam Physical Exam GENERAL: NAD, AAOx3, obese HEENT: Moist mucosa. Eyes open, symmetrical, & clear CARDIO: Heart RRR, no obvious murmurs PULM: No noted coughing/dyspnea CTA B/L, no R/W/R GI: Abdomen soft, nondistended, no pain on palpation. BSx4 SKIN/MSK/EXT: No wounds/rashes/edema/amputations, no pain on palpation. Pedal pulses present B/L NEURO: AAOx3, no focal neuro deficits, able to move all 4 extremities Objective Labs 07/24/24 05:00 07/24/24 05:00 Labs: Laboratory Results - last 24 hr 07/23/24 07/23/24 07/24/24 14:43 15:00 05:00 WBC 9.1 7.5 RBC 4.39 3.94 L Hgb 13.1 11.6 L Hct 39.6 35.5 L MCV 90 90 MCH 29.8 29.4 MCHC 33.1 32.7 RDW Std Deviation 43.9 45.0 Plt Count 262 222 D Neut % (Auto) 63 66 Lymph % (Auto) 28 22 [place] % (Auto) 8 11 Eos % (Auto) 1 1 Baso % (Auto) 0 1 Neut # (Auto) 5.7 5.0 Lymph # (Auto) 2.5 1.6 [place] # (Auto) 0.7 0.8 Eos # (Auto) 0.1 0.1 Baso # (Auto) 0.0 0.0 Immature Gran # (Auto) 0.02 H 0.02 H Absolute Nucleated RBC 0.00 0.00 Immature Gran % 0 0 Nucleated RBC % 0 0 PT 10.5 INR 1.0 APTT 24.7 Sodium 138 141 Potassium 3.8 3.6 Chloride 107 108 H Carbon Dioxide 22.5 24.1 Anion Gap 9 9 BUN 11 10 Creatinine 0.7 0.6 Estim Creat Clear Calc 119.3 147.3 eGFR > 60 > 60 BUN/Creatinine Ratio 16 17 Glucose [address] Glu mg/dL 100 Hemoglobin A1c 5.1 Calculated Osmolality 274 L 280 Calcium 8.7 8.3 Corrected Calcium 8.7 8.6 Phosphorus 2.3 L Total Bilirubin 0.4 1.0 D AST 15 98 H ALT 18 48 Alkaline Phosphatase 81 126 H D Total Protein 6.8 6.1 Albumin 4.0 3.6 Globulin 2.8 2.5 Albumin/Globulin Ratio 1.4 1.4 Triglycerides 175 H Cholesterol 173 LDL Cholesterol, Calc 98 HDL Cholesterol 40 Cholesterol/HDL Ratio 4.3 Lipase 34 TSH 2.75 Ur Collection Type Clean Catch Urine Color Lt-Yellow Urine Clarity Clear Urine pH 6.0 Ur Specific [place] 1.019 Urine Protein Negative Urine Glucose (UA) Negative Urine Ketones Negative Urine Blood 2+ A Urine Nitrite Negative Urine Bilirubin Negative Urine Urobilinogen (Auto) Negative Ur Leukocyte Esterase Negative Urine RBC 3 Urine WBC 3 Ur Squamous Epith Cells 10 H Urine Bacteria Rare Urine Sperm Present A Urine HCG, Qual Negative Quality Measures Quality Measures none Assessment & Plan Assessment Current Active Medications: Generic Name Dose Route Start Last Admin Trade Name Freq PRN Reason Stop Dose Admin Acetaminophen 650 mg 07/24/24 04:25 Acetaminophen 325 Mg Tablet PO 08/23/24 04:24 Q6H PRN Fever >100 or pain 1-3 Hydrocodone Bitart/Acetaminophen 1 tab 07/24/24 04:25 07/24/24 10:38 Hydrocodone/Apap 5/325 Tablet PO 07/29/24 04:24 1 tab Q4HR PRN Administration PAIN SCALE 4-6 (Moderate Enoxaparin Sodium 40 mg 07/24/24 09:00 07/24/24 10:40 Enoxaparin Sod Inj 40 Mg/0.4 Ml Syringe SC 08/07/24 08:59 40 mg QDAY ALDA Administration Piperacillin/Tazobactam/Dextrose 3.375 gm in 50 mls @ 12.5 mls/hr 07/24/24 14:00 Zosyn IV 07/31/24 13:59 Q8HR ALDA Sodium Chloride 1,000 mls @ 75 mls/hr 07/24/24 02:37 07/24/24 03:33 Ns IV 08/23/24 02:36 75 mls/hr .[id number] ALDA Administration Ketorolac Tromethamine 30 mg 07/24/24 13:04 Ketorolac Inj 30 Mg/Ml Vial IVP 07/29/24 13:03 Q6HR PRN PAIN SCALE 4-6 (Moderate Morphine Sulfate 4 mg 07/24/24 13:03 07/24/24 14:00 Morphine Sulf Inj 10 Mg/Ml Vial IVP 07/29/24 13:02 4 mg Q6HR PRN Administration PAIN SCALE 7-10 (Severe Ondansetron HCl 4 mg 07/24/24 04:25 Ondansetron Inj 2 Mg/Ml Inj 2 Ml IV 08/23/24 04:24 Q6H PRN NAUSEA OR VOMITING Protocol Pantoprazole Sodium 40 mg 07/24/24 09:00 07/24/24 10:40 Pantoprazole Inj 40 Mg Vial IVP 08/23/24 08:59 40 mg QDAY ALDA Administration Trazodone HCl 150 mg 07/24/24 21:00 Trazodone Hcl 50 Mg Tablet PO 08/23/24 20:59 HS ALDA Plan 48 y/o F with no significant PMHx. Admitted for abdominal pain likely appendicitis vs ovarian abcess. #Abdominal Mass vs #Ovarian Abscess #Abdominal pain DDx: Appendicitis, tubo-ovarian abscess, ovarian tumor, PID Ultrasound showed enlarged right ovary 5.5 x 3.1 x 3.[address] did not show appendicitis exam showed dark yellow discharge that was odorous, could be infectious related Patient experiencing extreme rebound tenderness, could be appendicitis as pain is described in periumbilical area and then radiated to the right lower quadrant, however is only been experiencing for 2 days TRANSPORTATION JOB TITLES evaluated the patient believes etiology of patient's presenting symptoms likely more related to appendicitis. Spoke to general surgery they believe patient has tubo-ovarian abscess and recommended to continue with IV antibiotic therapy at this time. ? Zosyn 3.375 mg Q6H IV ? General Surgery Dr. Mcconnell consulted, appreciate recommendations ? TILE SETTER APPRENTICE Dr. Elder consulted, appreciate recommendations ? Pain control with Morphine and [place] ? MRI pelvis w/wo contrast ? Follow up pelvic culture ? Follow up blood cultures ? pending STI screening #History of Depression ? Resumed home trazodone 150 mg Case discussed with my senior Dr. Sosa PGY-[address] Mary Beth Curry MD PGY-1 Disposition: MedSurg DVT prophylaxis: Lovenox GI prophylaxis: Protonix Diet: Regular CODE STATUS: Full Attending Provider Attestation/Addendum I attest that I was physically present for the evaluation, physical examination, lab and imaging review of the patient with the residents. I discussed the case with the residents and agree with the findings and plans of care as documented above. At bedside, patient continues to have abdominal pain but is more manageable with analgesics. Continues to be on IV antibiotics. TILE SETTER APPRENTICE following, recommended follow-up on wet prep, MRI pelvis and general surgery recommendation for suspicion of appendicitis. Discussed with general surgery, recommended continuation of IV antibiotics pending MRI. Pending blood cultures. Aziza Clinton MD
--- NOTE | 2024-07-24 16:28 | ESCONSULT_ITS ---
[facility] Consult details Consult date: 07/24/24 Reason for consultation narrative: Patient was seen in consultation because of a possible appendicitis. History of present illness: History of present illness revealed the patient was in her usual health until Sunday which was 3 days ago. The pain started around the umbilical region Sunday evening and she experiences pain during the night but was able to eat. Sunday patient lost her appetite and ate only salad and the pain was persisting. Sunday night patient did not sleep when she woke up Sunday with a severe pain and went to see her doctor who advised to the emergency room. Patient denies any such pain in the past. Patient had 1 episode of vomiting on Sunday. No history of diarrhea. Patient's other medical problem consisted of morbid obesity and depression for which she is on medications. At the present time she is disabled because of the depression and is not working. 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 Her past surgery consist of 3 sections. Past Medical History Past Medical History CARDIAC: Negative Cardiac Disorders or Congestive Heart Failure RESPIRATORY: Negative Respiratory Disorders, Chronic Obstructive Pulmonary Disease (COPD) or Asthma GENITOURINARY: Negative Renal Disease ENDOCRINE: Negative Diabetes Mellitus Type 1 or Diabetes Mellitus Type 2 HEMATOLOGIC: Negative Sickle Cell Disease Social History SMOKING STATUS: Never smoker Meds Home Medications and Allergies Home Medications ?Medication ?Instructions ?Recorded ?Confirmed ?Type No Known Home Medications 07/24/2407/12 History Allergies Allergy/AdvReac Type Severity Reaction Status Date / Time No Known Allergies Allergy Verified 07/23/24 14:19 Exam Vital Signs Temp Pulse Resp BP Pulse Ox O2 Del Method 97.8 F 87 17 144/93 H 95 Room Air 07/24/24 12:00 07/24/24 12:00 07/24/24 12:00 07/24/24 12:07/24/24 12:07/24/24 12:00 Narrative Exam Physical examination revealed a morbidly obese his panic female who is 5 foot 5 inches tall weighing 265 pounds with BMI of 44.1. Her vital signs are normal Constitutional Constitutional: severe distress Routine Abdominal Exam Comments: Examination of the abdomen revealed a lower midline surgical scar from the section. Patient has considerable tenderness on palpation of the right lower quadrant over the McBurney's point. Bowel sounds are present but hypoactive Routine Rectal Exam Comments: Deferred because of her obesity Routine Exam Comments: Gynecology performed examination Routine Extremities Exam Comments: Deferred Results Results: Laboratory Laboratory Narrative: Patient's laboratory work is within normal limits Results: Imaging Imaging narrative: CT scan of the abdomen revealed tubo-ovarian abscess or perforated appendicitis. There seems to be swelling over the right lower quadrant which may be inflammation due to ovary or perforated appendicitis. Ultrasound showed enlarged right ovary. Additional studies: I reviewed the CT scan with the radiologist on-call in our hospital. They strongly feel that it is most likely ovarian in origin rather than appendix. The he feels that the appendix is not inflamed Assessment & Plan Additional Assessment Additional comments: Impression: Possible appendicitis, ruptured and formed an abscess Tubo-ovarian abscess Depression Morbid obesity Plan Plan: I cannot rule out acute appendicitis in this patient but this delayed presentation means that she probably ruptured therefore we will normally treat them with IV antibiotics. If no improvement patient may also require laparoscopic. At this time I would continue antibiotics consisting of Zosyn we will follow her up. Thank you very much
[2024-07-24] MEDS: KETOROLAC INJ 30 MG/ML VIAL IVP (19:11)
[2024-07-24] MEDS: traZODone HCL 50 MG TABLET 150 MG PO (21:24)
[2024-07-25] VITALS: BP 130/77; PULSE 77; RESP 19; TEMP 36.4; O2SAT 93
[2024-07-25] MEDS: SODIUM CHLORIDE 0.9% 1000 ML 1,000 ML 75 ML IV ×2 (02:56→16:59)
[2024-07-25] MEDS: KETOROLAC INJ 30 MG/ML VIAL IVP ×3 (02:56→22:06)
[2024-07-25] MEDS: ONDANSETRON INJ 2 MG/ML INJ 2 ML 4 MG IV (03:03)
[2024-07-25 04:00] VITALS: BP 103/67; PULSE 72; RESP 19; TEMP 36.1; O2SAT 95
[2024-07-25] MEDS: PIPER/TAZO 3.375 GM PREMIX 3.375 GM/50 ML BAG IV ×3 (05:06→22:47)
[2024-07-25 06:13] LABS: Basophils % (Auto) 1 % (0-2.5); Eosinophils # (Auto) 0.1 Thou/mm3 (0.0-0.5); Eosinophils % (Auto) 2 % (0-10); Hematocrit 34.2 % (36.0-46.0); Hemoglobin 11.2 g/dL (12.0-16.0); Immature Granulocytes % (Auto) 0 % (0-0); Immature Granulocytes Auto 0.02 Thou/mm3 (0.00-0.00); Lymphocytes # (Auto) 1.8 Thou/mm3 (1.0-4.8); Lymphocytes % (Auto) 29 % (10-50); Mean Corpuscular HGB Conc 32.7 g/dl (31.0-37.0); Mean Corpuscular Hemoglobin 29.2 pg (25.0-35.0); Mean Corpuscular Volume 89 fL (80-100); Monocytes # (Auto) 0.7 Thou/mm3 (0.0-0.8); Monocytes % (Auto) 11 % (0-12); Neutrophils # (Auto) 3.5 Thou/mm3 (1.8-7.7); Neutrophils % (Auto) 58 % (37-80); Nucleated Red Blood Cell % 0 /100 WBC (0); Platelet Count 223 Thou/mm3 (140-440); RDW Standard Deviation 44.8 fL (36.4-46.3); Red Blood Count 3.84 Miln/mm3 (4.00-5.20); White Blood Count 6.2 Thou/mm3 (3.6-11.0)
[2024-07-25 06:29] LABS: Alanine Aminotransferase 63 U/L (10-49); Albumin, Serum 3.5 gm/dL (3.5-5.0); Albumin/Globulin Ratio 1.3 (1.2-2.2); Alkaline Phosphatase 124 U/L (46-116); Anion Gap 9 (7-16); Aspartate Amino Transferase 47 U/L (0-34); BUN/Creatinine Ratio 13 Ratio (12-20); Bilirubin,Total 0.6 mg/dL (0.3-1.2); Blood Urea Nitrogen 9 mg/dL (9-23); Calcium 8.5 mg/dL (8.3-10.6); Calcium (Corrected) 8.9 mg/dL (8.5-10.1); Chloride 109 mMol/L (98-107); Creatinine (Component) 0.7 mg/dL (0.6-1.3); Estimated Creatinine Clearance 126.3 mL/min (>60); Globulin 2.6 gm/dL (2.3-3.5); Glucose 91 mg/dL (74-106); Osmolality,Calculated 281 (275-295); Potassium 3.9 mMol/L (3.4-5.1); Sodium 142 mMol/L (136-145); Total Protein 6.1 gm/dL (5.7-8.2); eGFR > 60 See Note
[2024-07-25 08:00] VITALS: BP 145/91; PULSE 68; RESP 18; TEMP 36.2; O2SAT 94
[2024-07-25 08:27] LABS: Chlamydia trachomatis PCR Negative (Not Detect); Neisseria Gonorrhoeae DNA PCR Negative (Not Detect); Trichomonas Negative (Negative)
[2024-07-25] MEDS: ENOXAPARIN SOD INJ 40 MG/0.4 ML SYRINGE SC (08:34)
[2024-07-25] MEDS: PANTOPRAZOLE INJ 40 MG VIAL IVP (08:34)
--- NOTE | 2024-07-25 10:18 | PD.SURPROG ---
Documentation for date of: 07/25/24 Subjective Subjective Brief History: History of present illness revealed the patient was in her usual health until Sunday which was 3 days ago. The pain started around the umbilical region Sunday evening and she experiences pain during the night but was able to eat. Sunday patient lost her appetite and ate only salad and the pain was persisting. Sunday night patient did not sleep when she woke up Sunday with a severe pain and went to see her doctor who advised to the emergency room. Patient denies any such pain in the past. Patient had 1 episode of vomiting on Sunday. No history of diarrhea. Patient's other medical problem consisted of morbid obesity and depression for which she is on medications. At the present time she is disabled because of the depression and is not working. 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 Narrative: The patient is still having abdominal pain in the right lower quadrant but it is slightly better than yesterday. She used Toradol during the night. Exam Vital Signs Temp Pulse Resp BP Pulse Ox O2 Del Method 97.1 F 68 18 145/91 H 94 L Room Air 07/25/24 08:00 07/25/24 08:00 07/25/24 08:00 07/25/24 08:00 07/25/24 08:00 07/25/24 08:00 Her vital signs are normal Routine Abdominal Exam Comments: Abdominal examination shows tenderness in the right lower quadrant but no signs of peritoneal irritation. The tenderness is less than yesterday Results Results: Laboratory Laboratory Narrative: Laboratory results are within normal limits Assessment & Plan Assessment Additional comments: Impression: Antibiotic therapy for a right lower quadrant mass either appendicitis or tubo-ovarian in origin Plan Plan: We shall continue the present treatment and observe her.
[2024-07-25 12:00] VITALS: BP 150/96; PULSE 74; RESP 16; TEMP 36.2; O2SAT 96
--- NOTE | 2024-07-25 14:55 | ESPR_ITS ---
<Statement entered by Anne Camarena MD - 07/25/24 15:31> I discussed with and supervised the automotive internet sales consultant physician who took care of this patient. I personally saw and examined the patient and discussed the assessment and plan with the entire medicine team, including my attending, Mary Beth, I agree with the assessment and plan as documented below Patient seen and examined at bedside today. Labs and imaging reviewed. No overnight acute events This morning bedside patient stated that the pain pain has improved otherwise she stated that this morning was around 7 out of 10 MRI showed MRI shows uterine mass of 26 mm most likely fibroid degeneration and prominent right ovary that could be secondary to multiple follicular cysts, urine preliminary cultures gram-negative rods, general surgery is following up the case and he stated that at this moment patient does not require general surgery intervention. CUSTOMER RELATIONSHIP SPECIALIST is following up the case for which we will inform her of the result of the MRI for further recommendations. Anne Camarena MD PGY-3 Disclaimer: Despite multiple revisions, due to the dictation software being used, the document bellow may not be free of grammatical errors including phonetic/typographic errors. However, this does not deter from our commitment to providing health care in the patient's best interest in mind. Documentation for date of: 07/25/24 Subjective Subjective Interval history: Patient seen today at the bedside found awake, alert, oriented x 3. No overnight events reported. States continued right lower quadrant pain however improving compared to previous examinations. Vital signs stable at this time. Labs at this time stable. Pelvic MRI came back showing uterine body mass likely fibroid degeneration right ovary with multiple follicular cyst. Will reach out to CARTOON DESIGNER for any further recommendations. Exam Vital Signs Temp Pulse Resp BP Pulse Ox O2 Del Method 97.2 F 74 16 150/96 H 96 Room Air 07/25/24 12:00 07/25/24 12:00 07/25/24 12:00 07/25/24 12:00 07/25/24 12:07/25/24 12:00 Narrative Exam Physical Exam GENERAL: NAD, AAOx3, obese HEENT: Moist mucosa. Eyes open, symmetrical, & clear CARDIO: Heart RRR, no obvious murmurs PULM: No noted coughing/dyspnea CTA B/L, no R/W/R GI: Abdomen soft, nondistended, pain on palpation RLQ. BSx4 SKIN/MSK/EXT: No wounds/rashes/edema/amputations, no pain on palpation. Pedal pulses present B/L NEURO: AAOx3, no focal neuro deficits, able to move all 4 extremities Objective Labs 07/25/24 04:41 07/25/24 04:41 Labs: Laboratory Results - last 24 hr 07/24/24 07/25/24 20:50 04:41 WBC 6.2 RBC 3.84 L Hgb 11.2 L Hct 34.2 L MCV 89 MCH 29.2 MCHC 32.7 RDW Std Deviation 44.8 Plt Count 223 Neut % (Auto) 58 Lymph % (Auto) 29 Rice % (Auto) 11 Eos % (Auto) 2 Baso % (Auto) 1 Neut # (Auto) 3.5 Lymph # (Auto) 1.8 Rice # (Auto) 0.7 Eos # (Auto) 0.1 Baso # (Auto) 0.0 Immature Gran # (Auto) 0.02 H Absolute Nucleated RBC 0.00 Immature Gran % 0 Nucleated RBC % 0 Sodium 142 Potassium 3.9 Chloride 109 H Carbon Dioxide 24.0 Anion Gap 9 BUN 9 Creatinine 0.7 Estim Creat Clear Calc 126.3 eGFR > 60 BUN/Creatinine Ratio 13 Glucose 91 Calculated Osmolality 281 Calcium 8.5 Corrected Calcium 8.9 Total Bilirubin 0.6 AST 47 H ALT 63 H Alkaline Phosphatase 124 H Total Protein 6.1 Albumin 3.5 Globulin 2.6 Albumin/Globulin Ratio 1.3 Chlam trachomat DNA PCR Negative N.gonorrhoeae DNA (PCR) Negative Trichomonas DNA Probe Negative Quality Measures Quality Measures none Assessment & Plan Assessment Current Active Medications: Generic Name Dose Route Start Last Admin Trade Name Kalebq PRN Reason Stop Dose Admin Acetaminophen 650 mg 07/24/24 04:25 Acetaminophen 325 Mg Tablet PO 08/23/24 04:24 Q6H PRN Fever >100 or pain 1-3 Hydrocodone Bitart/Acetaminophen 1 tab 07/24/24 04:25 07/24/24 10:38 Hydrocodone/Apap 5/325 Tablet PO 07/29/24 04:24 1 tab Q4HR PRN Administration PAIN SCALE 4-6 (Moderate Enoxaparin Sodium 40 mg 07/24/24 09:00 07/25/24 08:34 Enoxaparin Sod Inj 40 Mg/0.4 Ml Syringe SC 08/07/24 08:59 40 mg QDAY ALDA Administration Piperacillin/Tazobactam/Dextrose 3.375 gm in 50 mls @ 12.5 mls/hr 07/24/24 14:00 07/25/24 13:47 Zosyn IV 07/31/24 13:59 12.5 mls/hr Q8HR ALDA Administration Sodium Chloride 1,000 mls @ 75 mls/hr 07/24/24 02:37 07/25/24 02:56 Ns IV 08/23/24 02:36 75 mls/hr .[id number] ALDA Administration Ketorolac Tromethamine 30 mg 07/24/24 13:04 07/25/24 08:57 Ketorolac Inj 30 Mg/Ml Vial IVP 07/29/24 13:03 30 mg Q6HR PRN Administration PAIN SCALE 4-6 (Moderate Morphine Sulfate 4 mg 07/24/24 13:03 07/24/24 14:00 Morphine Sulf Inj 10 Mg/Ml Vial IVP 07/29/24 13:02 4 mg Q6HR PRN Administration PAIN SCALE 7-10 (Severe Ondansetron HCl 4 mg 07/24/24 04:25 07/25/24 03:03 Ondansetron Inj 2 Mg/Ml Inj 2 Ml IV 08/23/24 04:24 4 mg Q6H PRN Administration NAUSEA OR VOMITING Protocol Pantoprazole Sodium 40 mg 07/24/24 09:00 07/25/24 08:34 Pantoprazole Inj 40 Mg Vial IVP 08/23/24 08:59 40 mg QDAY ALDA Administration Trazodone HCl 150 mg 07/24/24 21:00 07/24/24 21:24 Trazodone Hcl 50 Mg Tablet PO 08/23/24 20:59 150 mg HS ALDA Administration Plan 48 y/o F with no significant PMHx. Admitted for abdominal pain likely appendicitis vs ovarian abcess. #Right ovarian multiple follicular cysts #Uterine mass likely fibroid #Abdominal pain DDx: Appendicitis, tubo-ovarian abscess, ovarian tumor, PID Ultrasound showed enlarged right ovary 5.5 x 3.1 x 3.[address] did not show appendicitis exam showed dark yellow discharge that was odorous, could be infectious related Patient experiencing extreme rebound tenderness, could be appendicitis as pain is described in periumbilical area and then radiated to the right lower quadrant, however is only been experiencing for 2 days CARTOON DESIGNER evaluated the patient believes etiology of patient's presenting symptoms likely more related to appendicitis. Spoke to general surgery they believe patient has tubo-ovarian abscess and recommended to continue with IV antibiotic therapy at this time. Negative STI panel Pelvic MRI shows Uterine body mass 26 mm, likely fibroid degeneration, Prominent right ovary, which appears to be secondary to multiple follicular cysts ? Zosyn 3.375 mg Q6H IV ? General Surgery Dr. Mcconnell consulted, appreciate recommendations ? CUSTOMER RELATIONSHIP SPECIALIST Dr. Edler consulted, appreciate recommendations ? Pain control with Morphine and [place] ? possible 6 month follow-up transabdominal pelvic sonography ? Follow up pelvic culture #History of Depression ? Resumed home trazodone 150 mg Case discussed with my senior Dr. Camarena PGY-[address] Mary Beth Curry MD PGY-1 Disposition: MedSurg DVT prophylaxis: Lovenox GI prophylaxis: Protonix Diet: Regular CODE STATUS: Full Attending Provider Attestation/Addendum I attest that I was physically present for the evaluation, physical examination, lab and imaging review of the patient with the residents. I discussed the case with the residents and agree with the findings and plans of care as documented above. At bedside today, patient continues to complain of abdominal pain but improved compared to her presentation.? Her blood pressure is 150/96 this afternoon, rest of the vitals are within normal limits.? Noted to have mildly ELEVATED liver enzymes, AST 47, ALT 63 and ALP 124 today.? Likely reactive. ?Patient continues to be on IV antibiotics, analgesics.? Urine culture grew gram-negative rods.? Patient underwent MRI which shows uterine body mass of 26 mm, likely fibroid degeneration.? Prominent right ovary, which appears to be secondary to multiple follicular cyst.? We will discuss with general surgery and CUSTOMER RELATIONSHIP SPECIALIST, awaiting their recommendations. Aziza Clinton MD
[2024-07-25 15:58] VITALS: BP 129/67; PULSE 96; RESP 17; TEMP 36.3; O2SAT 95
[2024-07-25 20:00] VITALS: BP 151/84; PULSE 76; RESP 18; TEMP 36.9; O2SAT 96
[2024-07-25] MEDS: traZODone HCL 50 MG TABLET 150 MG PO (20:45)
[2024-07-26] VITALS: BP 150/88; PULSE 70; RESP 17; TEMP 37.1; O2SAT 95
[2024-07-26] MEDS: MORPHINE SULF INJ 10 MG/ML VIAL 4 MG IVP ×2 (01:42→23:26)
[2024-07-26 04:00] VITALS: BP 124/75; PULSE 78; RESP 17; TEMP 36.6; O2SAT 94
[2024-07-26] MEDS: PIPER/TAZO 3.375 GM PREMIX 3.375 GM/50 ML BAG IV ×3 (05:35→21:12)
[2024-07-26] MEDS: KETOROLAC INJ 30 MG/ML VIAL IVP ×2 (05:42→13:58)
[2024-07-26] MEDS: SODIUM CHLORIDE 0.9% 1000 ML 1,000 ML 75 ML IV ×2 (05:42→21:56)
[2024-07-26 06:07] LABS: Basophils % (Auto) 0 % (0-2.5); Eosinophils # (Auto) 0.1 Thou/mm3 (0.0-0.5); Eosinophils % (Auto) 2 % (0-10); Hematocrit 33.6 % (36.0-46.0); Hemoglobin 11.1 g/dL (12.0-16.0); Immature Granulocytes % (Auto) 0 % (0-0); Immature Granulocytes Auto 0.01 Thou/mm3 (0.00-0.00); Lymphocytes # (Auto) 2.2 Thou/mm3 (1.0-4.8); Lymphocytes % (Auto) 36 % (10-50); Mean Corpuscular Hemoglobin 29.3 pg (25.0-35.0); Mean Corpuscular Volume 89 fL (80-100); Monocytes # (Auto) 0.5 Thou/mm3 (0.0-0.8); Monocytes % (Auto) 8 % (0-12); Neutrophils # (Auto) 3.3 Thou/mm3 (1.8-7.7); Neutrophils % (Auto) 53 % (37-80); Nucleated Red Blood Cell % 0 /100 WBC (0); Platelet Count 219 Thou/mm3 (140-440); RDW Standard Deviation 44.6 fL (36.4-46.3); Red Blood Count 3.79 Miln/mm3 (4.00-5.20); White Blood Count 6.1 Thou/mm3 (3.6-11.0)
[2024-07-26 06:46] LABS: Alanine Aminotransferase 40 U/L (10-49); Albumin, Serum 3.4 gm/dL (3.5-5.0); Albumin/Globulin Ratio 1.4 (1.2-2.2); Alkaline Phosphatase 100 U/L (46-116); Anion Gap 9 (7-16); Aspartate Amino Transferase < 8 U/L (0-34); BUN/Creatinine Ratio 11 Ratio (12-20); Bilirubin,Total 0.4 mg/dL (0.3-1.2); Blood Urea Nitrogen 8 mg/dL (9-23); Calcium 8.5 mg/dL (8.3-10.6); Carbon Dioxide 23.4 mMol/L (20.0-31.0); Chloride 109 mMol/L (98-107); Creatinine (Component) 0.7 mg/dL (0.6-1.3); Estimated Creatinine Clearance 126.3 mL/min (>60); Globulin 2.5 gm/dL (2.3-3.5); Glucose 87 mg/dL (74-106); Osmolality,Calculated 278 (275-295); Potassium 3.7 mMol/L (3.4-5.1); Sodium 141 mMol/L (136-145); Total Protein 5.9 gm/dL (5.7-8.2); eGFR > 60 See Note
[2024-07-26 08:00] VITALS: BP 124/78; PULSE 73; RESP 17; TEMP 36.7; O2SAT 95
[2024-07-26] MEDS: PANTOPRAZOLE INJ 40 MG VIAL IVP (08:14)
[2024-07-26] MEDS: ENOXAPARIN SOD INJ 40 MG/0.4 ML SYRINGE SC (08:14)
--- NOTE | 2024-07-26 09:34 | ESPR_ITS ---
Documentation for date of: 07/26/24 [employer] Subjective Subjective Interval history: 48-year-old patient presented to the ER from her PCP with alicia-umbilical pain that migrated to the right lower quadrant 2 days prior, accompanied by nausea. The patient experienced difficulty moving her leg and right hip, and was observed to be rolled over in pain. She was admitted with a differential diagnosis of right tubo-ovarian abscess versus pain from a GI or other surgical process. Upon admission, a CT scan of the pelvis revealed a 3-centimeter mass with inflammation, which was pericecal and adjacent to the uterus. A pelvic ultrasound showed an enlarged right ovary measuring 5.5 by 3.1 by 3.8 centimeters with arterial flow. A subsequent pelvic MRI demonstrated a uterine body mass measuring 26 millimeters, likely fibroid degeneration, and a prominent right ovary with multiple follicular cysts. The patient was initially managed with IV antibiotics, including Zosyn. Since then, she has shown clinical improvement with significant reduction in fever and pain. At the time of evaluation, the patient reported no pain or nausea, was ambulating, tolerating oral intake, and was alert and oriented. Exam Vital Signs Temp Pulse Resp BP Pulse Ox O2 Del Method 98.1 F 73 17 124/78 95 Room Air 07/26/24 08:00 07/26/24 08:00 07/26/24 08:00 07/26/24 08:00 07/26/24 08:00 07/26/24 08:00 Constitutional Constitutional: no acute distress Routine HEENT Exam Head: Present normocephalic and atraumatic Eye: Present EOMI and PERRL ENT: Present mucous membranes moist Routine Neck Exam Neck: Present supple and trachea midline Routine Abdominal Exam Abdominal: Present soft and normoactive bowel sounds Routine Extremities Exam Extremities: Present full ROM Routine Skin Exam Skin: Present intact and dry Routine Psychiatric Exam Psychiatric: Present normal affect and normal thought process Urinary Catheter Management Cath placed during this visit: no [employer] LEADER - PN: Obj Data Labs 07/26/24 05:09 07/26/24 05:09 Labs: Laboratory Results - last 24 hr 07/26/24 05:09 WBC 6.1 RBC 3.79 L Hgb 11.1 L Hct 33.6 L MCV 89 MCH 29.3 MCHC 33.0 RDW Std Deviation 44.6 Plt Count 219 Neut % (Auto) 53 Lymph % (Auto) 36 [place] % (Auto) 8 Eos % (Auto) 2 Baso % (Auto) 0 Neut # (Auto) 3.3 Lymph # (Auto) 2.2 [place] # (Auto) 0.5 Eos # (Auto) 0.1 Baso # (Auto) 0.0 Immature Gran # (Auto) 0.01 H Absolute Nucleated RBC 0.00 Immature Gran % 0 Nucleated RBC % 0 Sodium 141 Potassium 3.7 Chloride 109 H Carbon Dioxide 23.4 Anion Gap 9 BUN 8 L Creatinine 0.7 Estim Creat Clear Calc 126.3 eGFR > 60 BUN/Creatinine Ratio 11 L Glucose 87 Calculated Osmolality 278 Calcium 8.5 Corrected Calcium 9.0 Total Bilirubin 0.4 AST < 8 ALT 40 Alkaline Phosphatase 100 D Total Protein 5.9 Albumin 3.4 L Globulin 2.5 Albumin/Globulin Ratio 1.4 [employer]IT LEADER - A/P Assessment and plan (1) Right lower quadrant abscess: Status: Acute Assessment and plan: Right Lower Quadrant Pain 48-year-old female presented with alicia-umbilical pain migrating to RLQ, associated with nausea and difficulty moving right leg and hip. Initial differential diagnosis included right tubo-ovarian abscess vs. GI or surgical process. CT pelvis showed 3cm pericecal mass with inflammation adjacent to uterus. Pelvic ultrasound revealed enlarged right ovary (5.5x3.1x3.8cm) with arterial flow. MRI pelvis demonstrated 26mm uterine body mass (likely fibroid degeneration) and prominent right ovary with multiple follicular cysts. Patient has shown clinical improvement with IV antibiotics (Zosyn), with resolution of fever and pain. Currently ambulating, tolerating oral intake, and alert and oriented. Tubo-ovarian abscess now considered extremely unlikely due to absence of hydrosalpinx, vaginal/cervical discharge, or other signs of pelvic inflammatory disease. Perforated appendicitis or other bowel perforation remain in the differential diagnosis. - Continue conservative management with IV antibiotics - No surgical intervention recommended at this time from gynecologic standpoint - Outpatient follow-up - Repeat pelvic ultrasound in 3-6 months Right Ovarian Cysts Imaging studies revealed prominent right ovary with multiple follicular cysts. These appear simple and are likely consistent with regular follicular cysts, not requiring immediate intervention. (2) Vaginal discharge: Status: Acute (3) Uterine fibroid: Status: Acute Assessment and plan: Incidental Uterine Fibroid MRI pelvis incidentally revealed a 26mm uterine body mass, likely representing fibroid degeneration. This finding is considered small and not clinically significant in the context of the patient's presenting symptoms. (4) Abdominal pain: Status: Acute Assessment and plan: Medical Decision Making Esperanza Beard is a 48-year-old female, [id number], presenting with alicia-umbilical pain migrating to the RLQ for 2 days, accompanied by nausea and difficulty moving her right leg and hip. The initial differential diagnosis included right tubo-ovarian abscess versus pain from a GI or other surgical process. CT scan revealed a 3-cm pericecal mass with inflammation adjacent to the uterus, suggesting a possible ruptured appendix or right tubo-ovarian abscess. Pelvic ultrasound showed an enlarged right ovary (5.5 x 3.1 x 3.8 cm) with arterial flow, raising concern for an early right ovarian tumor. Subsequent pelvic MRI identified a 26 mm uterine body mass, likely fibroid degeneration, and a prominent right ovary with multiple follicular cysts. The patient was managed conservatively with IV antibiotics (Zosyn) and showed clinical improvement. Upon reevaluation, the gynecologic differential diagnosis still includes tubo-ovarian abscess versus surgical pathology such as perforated appendicitis or bowel perforation. However, the absence of hydrosalpinx, vaginal or cervical discharge makes tubo-ovarian abscess extremely unlikely, though it cannot be completely ruled out. The fibroid degeneration and right ovarian cysts are considered incidental findings. Given the clinical improvement and imaging results, no surgical intervention is recommended from a gynecologic standpoint at this time. Time Spent With Patient Time: Total time spent is greater than 50% in coordination of care (as documented) at patient's floor/unit and/or counseling patient: Time with patient: less than 15 minutes
--- NOTE | 2024-07-26 11:51 | PD.SURPROG ---
Documentation for date of: 07/26/24 Subjective Subjective Brief History: History of present illness revealed the patient was in her usual health until Sunday which was 3 days ago. The pain started around the umbilical region Sunday evening and she experiences pain during the night but was able to eat. Sunday patient lost her appetite and ate only salad and the pain was persisting. Sunday night patient did not sleep when she woke up Sunday with a severe pain and went to see her doctor who advised to the emergency room. Patient denies any such pain in the past. Patient had 1 episode of vomiting on Sunday. No history of diarrhea. Patient's other medical problem consisted of morbid obesity and depression for which she is on medications. At the present time she is disabled because of the depression and is not working. 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 Her past surgery consist of 3 sections. Narrative: Thank patient was seen in follow-up today. She is still complaining of right lower quadrant pain and required pain medication during the night Exam Vital Signs Temp Pulse Resp BP Pulse Ox O2 Del Method 98.1 F 73 17 124/78 95 Room Air 07/26/24 08:00 07/26/24 08:00 07/26/24 08:00 07/26/24 08:00 07/26/24 08:00 07/26/24 08:00 Vital signs are normal Routine Cardiovascular Exam Comments: Abdominal examination shows excellent bowel sounds. Results Results: Laboratory Laboratory Narrative: Laboratory results are normal Assessment & Plan Assessment Additional comments: Impression: Slow but steady improvement. Plan Plan: She will continue IV antibiotics for another day. Discharged with oral antibiotics tomorrow. We shall advance her diet to regular diet
[2024-07-26 12:00] VITALS: BP 137/76; PULSE 80; RESP 17; TEMP 36.5; O2SAT 95
--- NOTE | 2024-07-26 12:47 | PD.RESPRO ---
Documentation for date of: 07/26/24 Subjective Subjective Interval history: Patient seen today at the bedside fine awake, alert, oriented x 3. No overnight events reported. States continued pain in the hypogastric and right lower quadrant. Spoke to INTERNET SALES REPRESENTATIVE recommends no surgical intervention at this time reviewed MRI findings with INTERNET SALES REPRESENTATIVE stated no concerning findings. Spoke to general surgery recommended to continue with IV antibiotics at this time. Patient has not had a bowel movement in 6 days enema administration was ordered. Will continue current management at this time. Exam Vital Signs Temp Pulse Resp BP Pulse Ox O2 Del Method 97.7 F 80 17 137/76 H 95 Room Air 07/26/24 12:00 07/26/24 12:00 07/26/24 12:00 07/26/24 12:00 07/26/24 12:00 07/26/24 12:00 Narrative Exam Physical Exam GENERAL: NAD, AAOx3, obese HEENT: Moist mucosa. Eyes open, symmetrical, & clear CARDIO: Heart RRR, no obvious murmurs PULM: No noted coughing/dyspnea CTA B/L, no R/W/R GI: Abdomen soft, nondistended, pain on palpation hypogastric and RLQ. BSx4 SKIN/MSK/EXT: No wounds/rashes/edema/amputations, no pain on palpation. Pedal pulses present B/L NEURO: AAOx3, no focal neuro deficits, able to move all 4 extremities Objective Labs 07/26/24 05:09 07/26/24 05:09 Labs: Laboratory Results - last 24 hr 07/26/24 05:09 WBC 6.1 RBC 3.79 L Hgb 11.1 L Hct 33.6 L MCV 89 MCH 29.3 MCHC 33.0 RDW Std Deviation 44.6 Plt Count 219 Neut % (Auto) 53 Lymph % (Auto) 36 [place] % (Auto) 8 Eos % (Auto) 2 Baso % (Auto) 0 Neut # (Auto) 3.3 Lymph # (Auto) 2.2 [place] # (Auto) 0.5 Eos # (Auto) 0.1 Baso # (Auto) 0.0 Immature Gran # (Auto) 0.01 H Absolute Nucleated RBC 0.00 Immature Gran % 0 Nucleated RBC % 0 Sodium 141 Potassium 3.7 Chloride 109 H Carbon Dioxide 23.4 Anion Gap 9 BUN 8 L Creatinine 0.7 Estim Creat Clear Calc 126.3 eGFR > 60 BUN/Creatinine Ratio 11 L Glucose 87 Calculated Osmolality 278 Calcium 8.5 Corrected Calcium 9.0 Total Bilirubin 0.4 AST < 8 ALT 40 Alkaline Phosphatase 100 D Total Protein 5.9 Albumin 3.4 L Globulin 2.5 Albumin/Globulin Ratio 1.4 Quality Measures Quality Measures none Assessment & Plan Assessment Current Active Medications: Generic Name Dose Route Start Last Admin Trade Name Freq PRN Reason Stop Dose Admin Acetaminophen 650 mg 07/24/24 04:25 Acetaminophen 325 Mg Tablet PO 08/23/24 04:24 Q6H PRN Fever >100 or pain 1-3 Hydrocodone Bitart/Acetaminophen 1 tab 07/24/24 04:25 07/24/24 10:38 Hydrocodone/Apap 5/325 Tablet PO 07/29/24 04:24 1 tab Q4HR PRN Administration PAIN SCALE 4-6 (Moderate Enoxaparin Sodium 40 mg 07/24/24 09:00 07/26/24 08:14 Enoxaparin Sod Inj 40 Mg/0.4 Ml Syringe SC 08/07/24 08:59 40 mg QDAY ALDA Administration Piperacillin/Tazobactam/Dextrose 3.375 gm in 50 mls @ 12.5 mls/hr 07/24/24 14:00 07/26/24 05:35 Zosyn IV 07/31/24 13:59 12.5 mls/hr Q8HR ALDA Administration Sodium Chloride 1,000 mls @ 75 mls/hr 07/24/24 02:37 07/26/24 05:42 Ns IV 08/23/24 02:36 75 mls/hr .[id number] ALDA Administration Ketorolac Tromethamine 30 mg 07/24/24 13:04 07/26/24 05:42 Ketorolac Inj 30 Mg/Ml Vial IVP 07/29/24 13:03 30 mg Q6HR PRN Administration PAIN SCALE 4-6 (Moderate Morphine Sulfate 4 mg 07/24/24 13:03 07/26/24 01:42 Morphine Sulf Inj 10 Mg/Ml Vial IVP 07/29/24 13:02 4 mg Q6HR PRN Administration PAIN SCALE 7-10 (Severe Ondansetron HCl 4 mg 07/24/24 04:25 07/25/24 03:03 Ondansetron Inj 2 Mg/Ml Inj 2 Ml IV 08/23/24 04:24 4 mg Q6H PRN Administration NAUSEA OR VOMITING Protocol Pantoprazole Sodium 40 mg 07/24/24 09:00 07/26/24 08:14 Pantoprazole Inj 40 Mg Vial IVP 08/23/24 08:59 40 mg QDAY ALDA Administration Trazodone HCl 150 mg 07/24/24 21:00 07/25/24 20:45 Trazodone Hcl 50 Mg Tablet PO 08/23/24 20:59 150 mg HS ALDA Administration Plan 48 y/o F with no significant PMHx. Admitted for abdominal pain likely appendicitis vs ovarian abcess. #Right ovarian multiple follicular cysts #Uterine mass likely fibroid #Abdominal pain DDx: Appendicitis, tubo-ovarian abscess, ovarian tumor, PID Ultrasound showed enlarged right ovary 5.5 x 3.1 x 3.[address] did not show appendicitis exam showed dark yellow discharge that was odorous, could be infectious related Patient experiencing extreme rebound tenderness, could be appendicitis as pain is described in periumbilical area and then radiated to the right lower quadrant, however is only been experiencing for 2 days INTERNET SALES REPRESENTATIVE evaluated the patient believes etiology of patient's presenting symptoms likely more related to appendicitis. Spoke to general surgery they believe patient has tubo-ovarian abscess and recommended to continue with IV antibiotic therapy at this time. Negative STI panel Pelvic MRI shows Uterine body mass 26 mm, likely fibroid degeneration, Prominent right ovary, which appears to be secondary to multiple follicular cysts ? Zosyn 3.375 mg Q6H IV ? General Surgery Dr. Mcconnell consulted, appreciate recommendations ? LINING MAKER HAND Dr. Elder consulted, appreciate recommendations ? Pain control with Morphine and [place] ? possible 6 month follow-up transabdominal pelvic sonography ? Follow up pelvic culture #History of Depression ? Resumed home trazodone 150 mg Case discussed with my attending Dr. Mary Beth Curry MD PGY-1 Disposition: MedSurg DVT prophylaxis: Lovenox GI prophylaxis: Protonix Diet: Regular CODE STATUS: Full Attending Provider Attestation/Addendum I attest that I was physically present for the evaluation, physical examination, lab and imaging review of the patient with the residents. I discussed the case with the residents and agree with the findings and plans of care as documented above. At bedside today, patient continues to complaint of abdominal pain. She states that her pain last night was even worse. Patient had a small bowel movement yesterday which was the first after last 6 days. Continues to have tenderness and rebound tenderness over lower abdomen. Discussed with general surgery, recommended continuation of antibiotics for possible ruptured appendicitis. LINING MAKER HAND following, recommended no surgical intervention at this point and outpatient follow-up. Patient stated that her pain improved after her small bowel movement yesterday, we will try enema along with bowel regimen and monitor for abdominal pain after bowel movement. Lab results have been stable. Urine culture grew E. coli sensitive to Zosyn. Aziza Clinton MD
--- NOTE | 2024-07-26 15:10 | PC.SS ---
Rounding: Manage abd pain, OBGYN and SX on board
[2024-07-26 16:00] VITALS: BP 132/87; PULSE 75; RESP 18; TEMP 36.8; O2SAT 96
[2024-07-26] MEDS: ACETAMINOPHEN 325 MG TABLET 650 MG PO (17:34)
[2024-07-26 20:00] VITALS: BP 145/96; PULSE 74; RESP 18; TEMP 36.7; O2SAT 95
[2024-07-26] MEDS: traZODone HCL 50 MG TABLET 150 MG PO (21:12)
[2024-07-27] VITALS: BP 122/96; PULSE 75; RESP 17; TEMP 36.5; O2SAT 95
[2024-07-27 04:00] VITALS: BP 112/84; PULSE 77; RESP 17; TEMP 36.4; O2SAT 95
[2024-07-27] MEDS: PIPER/TAZO 3.375 GM PREMIX 3.375 GM/50 ML BAG IV ×3 (05:14→21:00)
[2024-07-27] MEDS: KETOROLAC INJ 30 MG/ML VIAL IVP (05:17)
[2024-07-27 05:42] LABS: Basophils % (Auto) 1 % (0-2.5); Eosinophils # (Auto) 0.1 Thou/mm3 (0.0-0.5); Eosinophils % (Auto) 1 % (0-10); Hematocrit 33.1 % (36.0-46.0); Hemoglobin 10.9 g/dL (12.0-16.0); Immature Granulocytes % (Auto) 0 % (0-0); Immature Granulocytes Auto 0.01 Thou/mm3 (0.00-0.00); Lymphocytes # (Auto) 2.4 Thou/mm3 (1.0-4.8); Lymphocytes % (Auto) 36 % (10-50); Mean Corpuscular HGB Conc 32.9 g/dl (31.0-37.0); Mean Corpuscular Hemoglobin 29.4 pg (25.0-35.0); Mean Corpuscular Volume 89 fL (80-100); Monocytes # (Auto) 0.6 Thou/mm3 (0.0-0.8); Monocytes % (Auto) 9 % (0-12); Neutrophils # (Auto) 3.5 Thou/mm3 (1.8-7.7); Neutrophils % (Auto) 53 % (37-80); Nucleated Red Blood Cell % 0 /100 WBC (0); Platelet Count 213 Thou/mm3 (140-440); RDW Standard Deviation 44.3 fL (36.4-46.3); Red Blood Count 3.71 Miln/mm3 (4.00-5.20); White Blood Count 6.6 Thou/mm3 (3.6-11.0)
[2024-07-27 05:53] LABS: Alanine Aminotransferase 31 U/L (10-49); Albumin, Serum 3.4 gm/dL (3.5-5.0); Albumin/Globulin Ratio 1.4 (1.2-2.2); Alkaline Phosphatase 92 U/L (46-116); Anion Gap 9 (7-16); Aspartate Amino Transferase 17 U/L (0-34); BUN/Creatinine Ratio 13 Ratio (12-20); Bilirubin,Total 0.4 mg/dL (0.3-1.2); Blood Urea Nitrogen 9 mg/dL (9-23); Calcium 8.5 mg/dL (8.3-10.6); Carbon Dioxide 21.3 mMol/L (20.0-31.0); Chloride 109 mMol/L (98-107); Creatinine (Component) 0.7 mg/dL (0.6-1.3); Estimated Creatinine Clearance 126.3 mL/min (>60); Globulin 2.5 gm/dL (2.3-3.5); Glucose 97 mg/dL (74-106); Magnesium 1.8 mg/dL (1.6-2.6); Osmolality,Calculated 276 (275-295); Phosphorous 2.7 mg/dL (2.4-5.1); Potassium 3.8 mMol/L (3.4-5.1); Sodium 139 mMol/L (136-145); Total Protein 5.9 gm/dL (5.7-8.2); eGFR > 60 See Note
--- NOTE | 2024-07-27 07:25 | PD.RESDS ---
Planned Discharge Date 07/27/24 DS: Providers Provider Date of admission: 07/24/24 04:25 Primary care physician: Theron Luna MD Admitting Provider: Kia Lott MD Attending Provider on Admission: Sanjay Mchugh MD Consults: 07/24/24 04:23 Consult to General Surgery Routine Comment: ovarian mass/abscess Consulting Provider: Cristian Milian 07/24/24 04:24 Consult to Obstetrics Routine Comment: ovarian abscess vs mass Consulting Provider: Yakelin Elder Attending Provider on DC: Anne Camarena MD Discharging Provider: Anne Camarena MD Hospital Course Hospital Course Hospital course: Patient seen today at the bedside fine awake, alert, oriented x 3. No overnight events reported. States continued pain in the hypogastric and right lower quadrant. Spoke to GRAPHICS PRODUCTION SPECIALIST recommends no surgical intervention at this time reviewed MRI findings with GRAPHICS PRODUCTION SPECIALIST stated no concerning findings. Spoke to general surgery recommended to continue with IV antibiotics at this time. Patient has not had a bowel movement in 6 days enema administration was ordered. Will continue current management at this time. Time Spent with Patient Time attestation: Total time spent providing and/or coordinating discharge services: Exam Vital Signs Temp Pulse Resp BP Pulse Ox O2 Del Method 97.5 F 77 17 112/84 95 Room Air 07/27/24 04:00 07/27/24 04:00 07/27/24 04:00 07/27/24 04:00 07/27/24 04:00 07/27/24 04:00 Discharge Plan Plan Disposition Comment: RM 379, MED/SURG Care Plan Goals: Follow up with your PCP within 1 week of discharge Follow up with OBGYN within 2 weeks of discharge. Follow up with general surgery within 2 weeks of discharge You have been prescribed antibiotic ciprofloxacin 500mg twice a day for a duration of 8 more days. Should any symptom recur or worsen patient is instructed to return to the ED. Prescriptions/Referrals Prescriptions/Med Rec: New ciprofloxacin HCl [Cipro] 500 mg tablet 500 mg PO BID 8 Days Qty: 16 0RF Referrals: Theron Luna MD [Primary Care Provider] - Patient/Caregiver Discharge Instructions Print Language: Arabic
[2024-07-27 08:00] VITALS: BP 138/87; PULSE 70; RESP 18; TEMP 36.2; O2SAT 95
[2024-07-27] MEDS: PANTOPRAZOLE INJ 40 MG VIAL IVP (08:48)
[2024-07-27] MEDS: ENOXAPARIN SOD INJ 40 MG/0.4 ML SYRINGE SC (08:49)
--- NOTE | 2024-07-27 10:47 | PD.SURPROG ---
Documentation for date of: 07/27/24 Subjective Subjective Brief History: History of present illness revealed the patient was in her usual health until Sunday which was 3 days ago. The pain started around the umbilical region Sunday evening and she experiences pain during the night but was able to eat. Sunday patient lost her appetite and ate only salad and the pain was persisting. Sunday night patient did not sleep when she woke up Sunday with a severe pain and went to see her doctor who advised to the emergency room. Patient denies any such pain in the past. Patient had 1 episode of vomiting on Sunday. No history of diarrhea. Patient's other medical problem consisted of morbid obesity and depression for which she is on medications. At the present time she is disabled because of the depression and is not working. 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 Her past surgery consist of 3 sections. Narrative: Patient is still complaining of pain over the abdomen and required analgesics last night. She did have a bowel movement this morning Exam Vital Signs Temp Pulse Resp BP Pulse Ox O2 Del Method 97.2 F 70 18 138/87 H 95 Room Air 07/27/24 08:00 07/27/24 08:00 07/27/24 08:00 07/27/24 08:00 07/27/24 08:00 07/27/24 08:00 Vital signs have been normal all along Routine Abdominal Exam Comments: Abdominal examination showed mild tenderness on palpation of the right lower quadrant. Good bowel sounds are heard Results Results: Laboratory Laboratory Narrative: Laboratory cells are within normal limits Assessment & Plan Assessment Additional comments: Impression: Abdominal pain from tubo-ovarian abscess or perforated appendicitis resolving gradually Plan Plan: Patient could be discharged today or tomorrow with oral antibiotics. I will see her in 1 week and arrange for a CT of the abdomen and pelvis as an outpatient.
[2024-07-27 12:00] VITALS: BP 162/89; PULSE 70; RESP 18; TEMP 36.4; O2SAT 95
[2024-07-27] MEDS: HYDROcodone/APAP 5/325 TABLET 1 TAB PO ×2 (13:24→22:01)
--- NOTE | 2024-07-27 14:04 | PD.RESPRO ---
Documentation for date of: 07/27/24 Subjective Subjective Interval history: No overnight events Today at the bedside patient is AOx4, respond to question properly endorsed that his pain has improved 7/10 otherwise continue to present pain with cough or with ambulation. We spoke with the patient about general surgery recommendations that most likely her pain could be secondary to perforated appendix vs tubo-ovarian abscess otherwise is unclear the etiology. At this moment general surgery does not recommend any surgical intervention and the patient can be managed with 1 more day of IV antibiotics and be discharged with p.o. medications and follow-up with general surgery in [address] as well with AUDIO/VIDEO ENGINEER. Exam Vital Signs Temp Pulse Resp BP Pulse Ox O2 Del Method 97.6 F 70 18 162/89 H 95 Room Air 07/27/24 12:00 07/27/24 12:07/27/24 12:00 07/27/24 12:00 07/27/24 12:07/27/24 12:00 Narrative Exam General: No acute distress, well appearing, alert, interactive, morbidly obese HEENT: NC/AT, PERRL, EOMI, Good conjugate gaze, moist mucous membranes, oropharynx clear. Neck: Supple, No masses, No adenopathy, carotid pulse 2+ bilaterally without bruits, No JVD, normal range of motion. Chest: Symmetrical, atraumatic, and with equal expansion , Nontender on palpation no deformity and no crepitus. CVS: S1 and S2 present, Regular rate and rhythm, No murmurs, rubs or gallops perceived during auscultation. Lungs: Normal respiratory effort, CTAB, no wheezing, rhonchi or rales perceived during auscultation, No intercostal or subcostal retraction. Abdomen : Mild tenderness to palpation in right hypogastrium and rebound tenderness, +BS. Extremities: No edema, warm well perfused, normal tone and ROM, strength and sensation intact, cap refill less than 2, +2 dp equal bilaterally, able to move all 4 extremities spontaneously. Skin: Intact, no rashes, no lesions, no erythema or jaundice noted Neuro: AOx4, cranial nerves II through XII intact, reflex symmetric and sensation normal, no focal neurologic deficits noted, GCS 15 Psych: Appropriate mood and affect. Objective Labs 07/27/24 05:00 07/27/24 05:00 Labs: Laboratory Results - last 24 hr 07/27/24 05:00 WBC 6.6 RBC 3.71 L Hgb 10.9 L Hct 33.1 L MCV 89 MCH 29.4 MCHC 32.9 RDW Std Deviation 44.3 Plt Count 213 Neut % (Auto) 53 Lymph % (Auto) 36 [place] % (Auto) 9 Eos % (Auto) 1 Baso % (Auto) 1 Neut # (Auto) 3.5 Lymph # (Auto) 2.4 [place] # (Auto) 0.6 Eos # (Auto) 0.1 Baso # (Auto) 0.0 Immature Gran # (Auto) 0.01 H Absolute Nucleated RBC 0.00 Immature Gran % 0 Nucleated RBC % 0 Sodium 139 Potassium 3.8 Chloride 109 H Carbon Dioxide 21.3 Anion Gap 9 BUN 9 Creatinine 0.7 Estim Creat Clear Calc 126.3 eGFR > 60 BUN/Creatinine Ratio 13 Glucose 97 Calculated Osmolality 276 Calcium 8.5 Corrected Calcium 9.0 Phosphorus 2.7 Magnesium 1.8 Total Bilirubin 0.4 AST 17 ALT 31 Alkaline Phosphatase 92 Total Protein 5.9 Albumin 3.4 L Globulin 2.5 Albumin/Globulin Ratio 1.4 Quality Measures Quality Measures none Assessment & Plan Assessment Current Active Medications: Generic Name Dose Route Start Last Admin Trade Name Freq PRN Reason Stop Dose Admin Acetaminophen 650 mg 07/24/24 04:25 07/26/24 17:34 Acetaminophen 325 Mg Tablet PO 08/23/24 04:24 650 mg Q6H PRN Administration Fever >100 or pain 1-3 Hydrocodone Bitart/Acetaminophen 1 tab 07/24/24 04:25 07/27/24 13:24 Hydrocodone/Apap 5/325 Tablet PO 07/29/24 04:24 1 tab Q4HR PRN Administration PAIN SCALE 4-6 (Moderate Enoxaparin Sodium 40 mg 07/24/24 09:00 07/27/24 08:49 Enoxaparin Sod Inj 40 Mg/0.4 Ml Syringe SC 08/07/24 08:59 40 mg QDAY ALDA Administration Piperacillin/Tazobactam/Dextrose 3.375 gm in 50 mls @ 12.5 mls/hr 07/24/24 14:00 07/27/24 13:24 Zosyn IV 07/31/24 13:59 12.5 mls/hr Q8HR ALDA Administration Ketorolac Tromethamine 30 mg 07/24/24 13:04 07/27/24 05:17 Ketorolac Inj 30 Mg/Ml Vial IVP 07/29/24 13:03 30 mg Q6HR PRN Administration PAIN SCALE 4-6 (Moderate Ondansetron HCl 4 mg 07/24/24 04:25 07/25/24 03:03 Ondansetron Inj 2 Mg/Ml Inj 2 Ml IV 08/23/24 04:24 4 mg Q6H PRN Administration NAUSEA OR VOMITING Protocol Pantoprazole Sodium 40 mg 07/24/24 09:00 07/27/24 08:48 Pantoprazole Inj 40 Mg Vial IVP 08/23/24 08:59 40 mg QDAY ALDA Administration Trazodone HCl 150 mg 07/24/24 21:00 07/26/24 21:12 Trazodone Hcl 50 Mg Tablet PO 08/23/24 20:59 150 mg HS ALDA Administration Plan 48 y/o F with no significant PMHx. Admitted for abdominal pain likely appendicitis vs ovarian abcess. #Right ovarian multiple follicular cysts #Uterine mass likely fibroid #Abdominal pain DDx: Appendicitis, tubo-ovarian abscess, ovarian tumor, PID Ultrasound showed enlarged right ovary 5.5 x 3.1 x 3.[address] did not show appendicitis exam showed dark yellow discharge that was odorous, could be infectious related Patient experiencing extreme rebound tenderness, could be appendicitis as pain is described in periumbilical area and then radiated to the right lower quadrant, however is only been experiencing for 2 days HOOK AND EYE SEWING MACHINE OPERATOR evaluated the patient believes etiology of patient's presenting symptoms likely more related to appendicitis. Spoke to general surgery they believe patient has tubo-ovarian abscess and recommended to continue with IV antibiotic therapy at this time. Negative STI panel Pelvic MRI shows Uterine body mass 26 mm, likely fibroid degeneration, Prominent right ovary, which appears to be secondary to multiple follicular cysts ? Zosyn 3.375 mg Q6H IV ? DC morphine ? Continue IV ketorolac and p.o. [place] for pain ? possible 6 month follow-up transabdominal pelvic sonography #History of Depression ? Resumed home trazodone 150 mg Disposition: MedSurg DVT prophylaxis: Lovenox GI prophylaxis: Protonix Diet: Regular CODE STATUS: Full Patient discussed with my attending Dr Mary Beth Camarena MD PGY-3 Disclaimer: Despite multiple revisions, due to the dictation software being used, the document bellow may not be free of grammatical errors including phonetic/typographic errors. However, this does not deter from our commitment to providing health care in the patient's best interest in mind. Attending Provider Attestation/Addendum I attest that I was physically present for the evaluation, physical examination, lab and imaging review of the patient with the residents. I discussed the case with the residents and agree with the findings and plans of care as documented above. At bedside today, patient continues to complain of 7 out of 10 pain but states that it has been improving slowly since her presentation. Denies any fever, chills, nausea or vomiting. She had a bowel movement today. Discussed with general surgery, recommended continuation of antibiotics and also check for intractable pain. Will continue to monitor her pain, if her pain is manageable with oral analgesics, we will consider discharge tomorrow. Aziza Clinton MD
[2024-07-27 16:00] VITALS: BP 152/87; PULSE 70; RESP 18; TEMP 36.5; O2SAT 94
[2024-07-27 20:00] VITALS: BP 154/91; PULSE 79; RESP 18; TEMP 36.5; O2SAT 95
[2024-07-27] MEDS: DOCUSATE SOD 250 MG CAPSULE PO (20:53)
[2024-07-27] MEDS: traZODone HCL 50 MG TABLET 150 MG PO (20:53)
[2024-07-28] VITALS: BP 139/85; PULSE 68; RESP 17; TEMP 36.6; O2SAT 96
[2024-07-28] MEDS: HYDROcodone/APAP 5/325 TABLET 1 TAB PO (03:19)
[2024-07-28 04:00] VITALS: BP 154/95; PULSE 74; RESP 18; TEMP 36.4; O2SAT 95
[2024-07-28] MEDS: PIPER/TAZO 3.375 GM PREMIX 3.375 GM/50 ML BAG IV ×2 (05:31→14:39)
[2024-07-28 05:56] LABS: Basophils % (Auto) 0 % (0-2.5); Eosinophils # (Auto) 0.1 Thou/mm3 (0.0-0.5); Eosinophils % (Auto) 1 % (0-10); Hematocrit 33.7 % (36.0-46.0); Hemoglobin 11.6 g/dL (12.0-16.0); Immature Granulocytes % (Auto) 0 % (0-0); Immature Granulocytes Auto 0.03 Thou/mm3 (0.00-0.00); Lymphocytes # (Auto) 2.1 Thou/mm3 (1.0-4.8); Lymphocytes % (Auto) 29 % (10-50); Mean Corpuscular HGB Conc 34.4 g/dl (31.0-37.0); Mean Corpuscular Hemoglobin 29.8 pg (25.0-35.0); Mean Corpuscular Volume 87 fL (80-100); Monocytes # (Auto) 0.6 Thou/mm3 (0.0-0.8); Monocytes % (Auto) 8 % (0-12); Neutrophils # (Auto) 4.3 Thou/mm3 (1.8-7.7); Neutrophils % (Auto) 61 % (37-80); Nucleated Red Blood Cell % 0 /100 WBC (0); Platelet Count 266 Thou/mm3 (140-440); RDW Standard Deviation 42.6 fL (36.4-46.3); Red Blood Count 3.89 Miln/mm3 (4.00-5.20); White Blood Count 7.1 Thou/mm3 (3.6-11.0)
[2024-07-28 06:46] LABS: Alanine Aminotransferase 30 U/L (10-49); Albumin, Serum 3.7 gm/dL (3.5-5.0); Albumin/Globulin Ratio 1.3 (1.2-2.2); Alkaline Phosphatase 94 U/L (46-116); Anion Gap 8 (7-16); Aspartate Amino Transferase 17 U/L (0-34); BUN/Creatinine Ratio 16 Ratio (12-20); Bilirubin,Total 0.4 mg/dL (0.3-1.2); Blood Urea Nitrogen 13 mg/dL (9-23); Calcium 8.9 mg/dL (8.3-10.6); Calcium (Corrected) 9.1 mg/dL (8.5-10.1); Carbon Dioxide 24.4 mMol/L (20.0-31.0); Chloride 108 mMol/L (98-107); Creatinine (Component) 0.8 mg/dL (0.6-1.3); Estimated Creatinine Clearance 110.5 mL/min (>60); Globulin 2.8 gm/dL (2.3-3.5); Glucose 89 mg/dL (74-106); Magnesium 1.7 mg/dL (1.6-2.6); Osmolality,Calculated 278 (275-295); Phosphorous 3.3 mg/dL (2.4-5.1); Potassium 3.7 mMol/L (3.4-5.1); Sodium 140 mMol/L (136-145); Total Protein 6.5 gm/dL (5.7-8.2); eGFR > 60 See Note
[2024-07-28 08:00] VITALS: BP 124/92; PULSE 70; RESP 17; TEMP 36.6; O2SAT 94
[2024-07-28] MEDS: ENOXAPARIN SOD INJ 40 MG/0.4 ML SYRINGE SC (09:02)
[2024-07-28] MEDS: DOCUSATE SOD 250 MG CAPSULE PO (09:02)
[2024-07-28] MEDS: PANTOPRAZOLE INJ 40 MG VIAL IVP (09:03)
[2024-07-28] MEDS: LACTULOSE SYRUP 20 GM/30 ML UDC 30 GM PO (11:33)
--- NOTE | 2024-07-28 11:35 | ESDS_ITS ---
<Statement entered by Mikaela Sosa MD - 07/28/24 18:22> I discussed with and supervised the international operations manager physician who took care of this patient. I personally saw and examined the patient and discussed the assessment and plan with the entire medicine team, including my attending , I agree with most of the assessment and plan as documented below Mikaela Sosa M.D. PGY-2 Planned Discharge Date 07/28/24 DS: Providers Provider Date of admission: 07/24/24 04:25 Primary care physician: Theron Luna MD Admitting Provider: Kia Lott MD Attending Provider on Admission: Sanjay Mchugh MD Consults: 07/24/24 04:23 Consult to General Surgery Routine Comment: ovarian mass/abscess Consulting Provider: Cristian Milian 07/24/24 04:24 Consult to Obstetrics Routine Comment: ovarian abscess vs mass Consulting Provider: Yakelin Elder 07/27/24 22:36 Referral Kelly Routine Comment: Attending Provider on DC: Aziza Clinton MD Discharging Provider: Chencho Curry MD Anticipated date of discharge: 07/28/24 DS: Diagnosis Problem List Completed Was Problem List Reviewed/Reconciled?: Yes Hospital Course Hospital Course Hospital course: 48 y/o F with no significant PMHx presented with periumbilical pain radiating to right lower quadrant, onset 2 days ago, with associated vomiting. Admitted for abdominal pain likely appendicitis vs ovarian abcess. During hospital stay patient was evaluated with various imaging studies found with right ovary with multiple follicular cyst, uterine mass less likely a fibroid, patient was also evaluated with pelvic MRI. WELLNESS PROGRAM ADMINISTRATOR and general surgery were both consulted both recommended no surgical intervention. Patient was managed with IV antibiotics and pain control medications. Patient has history of depression at home medications were resumed as taken at home. At this time patient is medically stable for discharge. You have been prescribed Augmentin for an additional 8 days. You have been prescribed [place] fives to 8 hours as needed with a maximum dose of 3 pills/day. Should any symptoms recur or worsen patient is instructed to return to the ED. Problem List: #Right ovarian multiple follicular cysts #Uterine mass likely fibroid #History of Depression Case discussed with my senior Dr. Sosa PGY-[address] Mary Beth Curry MD PGY-1 Status at Discharge Functional status at discharge: independent ambulation Overall status at discharge: patient is back to baseline Time Spent with Patient Time attestation: Total time spent providing and/or coordinating discharge services: Time spent: Greater than 30 minutes Exam Vital Signs Temp Pulse Resp BP Pulse Ox O2 Del Method 97.8 F 70 17 124/92 H 94 L Room Air 07/28/24 08:00 07/28/24 08:00 07/28/24 08:00 07/28/24 08:00 07/28/24 08:00 07/28/24 08:00 Narrative Exam Physical Exam GENERAL: NAD, AAOx3, obese HEENT: Moist mucosa. Eyes open, symmetrical, & clear CARDIO: Heart RRR, no obvious murmurs PULM: No noted coughing/dyspnea CTA B/L, no R/W/R GI: Abdomen soft, nondistended, pain on palpation hypogastric and RLQ. BSx4 SKIN/MSK/EXT: No wounds/rashes/edema/amputations, no pain on palpation. Pedal pulses present B/L NEURO: AAOx3, no focal neuro deficits, able to move all 4 extremities Discharge Plan Plan Patient Disposition: HOME (Self Care) Patient condition on transfer: Stable Care Plan Goals: Follow up with your PCP within 1 week of discharge Follow up with OBGYN within 2 weeks of discharge. Follow up with general surgery within 1 week of discharge Outpatient follow-up with CT abdomen pelvis for general surgery You have been prescribed antibiotic Augmentin 875-125 mg po BID for a duration of 8 more days. Should any symptom recur or worsen patient is instructed to return to the ED. Prescriptions/Referrals Prescriptions/Med Rec: New amoxicillin-pot clavulanate 875-125 mg tablet 1 tab PO BID 8 Days Qty: 16 0RF hydrocodone-acetaminophen 5-325 mg tablet 1 tab PO Q8H MDD 3 PRN (Reason: pain) Qty: 10 0RF Referrals: Theron Luna MD [Primary Care Provider] - Patient/Caregiver Discharge Instructions Meds to Beds: No Discharge Activity: activity as tolerated Print Language: Estonian Stand Alone Forms: [facility] Award Info., Patient Portal Info Letter Discharge Order Discharge Orders: Discharge (Routine); Ordered 07/28/24 Ordered By: Chencho Curry Quality Discharge Quality Measures VTE prophylaxis Attestestation MD Attestation I attest that I was physically present for the evaluation, physical examination, lab and imaging review of the patient with the residents. I discussed the case with the residents and agree with the findings and plans of care as documented above. Aziza Clinton MD
[2024-07-28 12:00] VITALS: BP 144/91; PULSE 68; RESP 18; TEMP 36.3; O2SAT 94
--- NOTE | 2024-07-28 15:50 | PC.SS ---
Patient is alert/oriented. Patient was able to verify demographics. Patient states she resides with her spouse and children. Patient is independent with ADL's. Patient is employed. Admitted for abdominal mass. Patient PCP: Dr. Luna. Last appt. was in July. Patient OBGYN was in [place]. Last appt. was last year. Patient in severe abdominal pain. Patient plans on discharging home with family once stable. No further d/c needs. is alt medical decision maker.
== END 2024-07-28 16:05 | disposition home or self-care (01) | DRG 760 ==
LOC: SERX 22:16 → SERHOLD 07-24 05:01 → S3SX 07-24 06:04
PROVIDERS: Nurse Practitioner Family; Obstetrics & Gynecology; Student in an Organized Health Care Education/Training Program; Admitting Provider Internal Medicine; Emergency Provider Emergency Medicine; PCP Family Medicine; Visit Provider Obstetrics & Gynecology
DX: N83.01 Follicular cyst of right ovary (principal); Z68.41 Body mass index [BMI] 40.0-44.9, adult; D25.9 Leiomyoma of uterus, unspecified; F32.A Depression, unspecified; N89.8 Other specified noninflammatory disorders of vagina; E66.01 Morbid (severe) obesity due to excess calories; R00.0 Tachycardia, unspecified; K80.20 Calculus of gallbladder without cholecystitis without obstruction; R74.8 Abnormal levels of other serum enzymes; B96.20 Unspecified Escherichia coli [E. coli] as the cause of diseases classified elsewhere; N70.93 Salpingitis and oophoritis, unspecified; Z98.891 History of uterine scar from previous surgery; Z98.51 Tubal ligation status
CPT/HCPCS: 36415; 72197; 74177; 76856; 80053; 80061; 81001; 81025; 83036; 83690; 83735; 84100; 84443; 85025; 85610; 85730; 87077; 87086; 87186; 87491; 87591; 87661; 96361; 96365; 96375; 96376; A4649; A9579; J1650; J1885; J2270; J2405; J2470; J2543; J7030; Q0162; Q9967; A9270